=== PATIENT | male | born 1960 | race Caucasian/White ===

== ENCOUNTER 2017-05-14 08:48 | Outpatient (POV) | payer MEDICAID, SELFPAY | END 2017-05-14 10:00 | disposition home or self-care (01) | PROVIDERS: Visit Provider Podiatrist | DX: L84 Corns and callosities (principal); B35.1 Tinea unguium; E11.8 Type 2 diabetes mellitus with unspecified complications | CPT/HCPCS: 99212; G0127 ==

== ENCOUNTER 2017-05-21 13:48 | Observation (INO) | payer MEDICAID, SELFPAY | END 2017-05-22 09:45 | disposition home or self-care (01) | PROVIDERS: Admitting Provider Internal Medicine Adolescent Medicine; Emergency Provider Emergency Medicine; Family Provider Internal Medicine Adolescent Medicine; Visit Provider Internal Medicine Adolescent Medicine | DX: E86.0 Dehydration (principal); I10 Essential (primary) hypertension; I50.9 Heart failure, unspecified; Z95.810 Presence of automatic (implantable) cardiac defibrillator; Z95.5 Presence of coronary angioplasty implant and graft; I95.9 Hypotension, unspecified; E11.9 Type 2 diabetes mellitus without complications; I25.10 Atherosclerotic heart disease of native coronary artery without angina pectoris | CPT/HCPCS: 36415; 71010; 71250; 80048; 80053; 82550; 82553; 82962; 84484; 85025; 93005; 96365; 99285; G0378 ==

== ENCOUNTER 2017-05-25 11:12 | Outpatient (CLI) | payer MEDICAID, SELFPAY | END 2017-05-25 12:40 | disposition home or self-care (01) | PROVIDERS: Family Provider Internal Medicine Adolescent Medicine; Referring Provider Internal Medicine Adolescent Medicine; Visit Provider Internal Medicine Adolescent Medicine | DX: E86.0 Dehydration (principal) | CPT/HCPCS: 96365 ==

== ENCOUNTER → 2017-05-25 | Outpatient (CLI) | payer MEDICAID, SELFPAY | PROVIDERS: Visit Provider Internal Medicine Adolescent Medicine | DX: S37.009A Unspecified injury of unspecified kidney, initial encounter (principal) | CPT/HCPCS: 36415; 80048 ==

== ENCOUNTER 2017-06-02 16:15 | Observation (INO) | payer MEDICAID, SELFPAY ==
[2017-06-02 20:14] VITALS: BMI 40.0
[2017-06-03 06:36] VITALS: BP 108/65; PULSE 74; RESP 20; TEMP 36.5; O2SAT 99
--- NOTE | 2017-06-03 07:16 | HMH.PHAVTE ---
[facility] Pharmacy VTE Monitoring - Patient Demographics Admission date: 07/03/17 Report Date: 06/03/17 Time: 07:16 Allergies/Adverse Reactions: hydralazine Allergy (Severe, Verified 06/03/17 02:21) S-DIFF. BREATHING olmesartan Allergy (Severe, Verified 06/03/17 02:21) S-DIFF. BREATHING penicillin V Allergy (Unknown, Verified 06/03/17 02:21) Penicillins Allergy (Unknown, Verified 06/03/17 02:21) FAMILY HISTORY OF PCN ALLERGY Height: 1.75 m Weight: 102.767 kg - VTE Risk Labs: VTE Related Lab Results Hgb 14.2 g/dL (14.1-18.0) 06/02/17 13:10 Hct 42.8 % (42.0-52.0) 06/02/17 13:10 Plt Count 226 K/mm3 (142-424) 06/02/17 13:10 BUN 31 mg/dL (7-18) H 06/02/17 13:10 Creatinine 2.2 mg/dL (0.70-1.30) H 06/02/17 13:10 Estimated Creat Clear 64 ML/MIN (50-200) 06/02/17 13:10 Clinical Trial Participant: No - Prophylaxis VTE Prophylaxis Ordered?: Yes Types of VTE Prophylaxis: TEDS Knee High, Other Location of Applied Device: Not Applicable
--- NOTE | 2017-06-03 07:41 | PC.NURSE ---
NO COMPLAINTS STATED. INDEPENDENT WITH ADLS. VSS. WILL CONTINUE TO MONITOR.
[2017-06-03 08:10] LABS: Basophils # 0.1 K/mm3 (0-0.2); Basophils % 0.6 % (0.1-2.0); Eosinophils # 0.1 K/mm3 (0.0-0.4); Eosinophils % 1.2 % (0.1-12.0); Hematocrit 42.1 % (42.0-52.0); Lymphocytes # 1.7 K/mm3 (0.7-4.5); Lymphocytes % 20.9 K/mm3 (10-50); Mean Corpuscular HGB Conc 33.2 g/dL (31.8-35.4); Mean Corpuscular Hemoglobin 33.4 pg (27.0-31.2); Mean Corpuscular Volume 100.7 fl (80-94); Mean Platelet Volume 7.5 fl (7.4-10.4); Monocytes # 0.6 K/mm3 (0.1-1.0); Monocytes % 6.7 % (1.7-9.3); Neutrophils # 5.9 K/mm3 (1.8-7.8); Neutrophils % 70.6 % (37.0-80.0); Platelet Count 174 K/mm3 (142-424); Red Blood Count 4.18 M/mm3 (4.60-6.20); Red Cell Distribution Width 13.5 % (11.5-17.5); White Blood Count 8.4 K/mm3 (4.8-10.8)
[2017-06-03 08:28] LABS: Alanine Aminotransferase 48 U/L (12-78); Albumin Level 3.2 gm/dL (3.4-5.0); Alkaline Phosphatase 57 U/L (46-116); Anion Gap 12.3 mEq/L (5-15); Aspartate Amino Transferase 26 U/L (15-37); Bilirubin,Total 0.7 mg/dL (0.2-1.0); Blood Urea Nitrogen 25 mg/dL (7-18); Calcium 8.3 mg/dL (8.5-10.1); Carbon Dioxide 26 mmol/L (21.0-32.0); Chloride 105 mmol/L (98-107); Creatinine Clearance Estimated 78 mg/ml (0-300); Creatinine,Serum 1.49 mg/dL (0.70-1.30); Estimated Glomerular Filt Rate 48 ml/min (>60); GFR (African American) 58 ML/MIN (>60); Globulin 3.2 gm/dl (1.3-3.2); Glucose 86 mg/dL (74-106); Potassium 4.3 mmoL/L (3.5-5.1); Sodium 139 mmol/L (136-145); Total Protein,Serum 6.4 gm/dL (6.4-8.2)
[2017-06-03 08:53] VITALS: BP 85/43; PULSE 73; RESP 20; TEMP 36.7; O2SAT 96
--- NOTE | 2017-06-03 09:39 | HMH.DCSUM ---
General - General Admission date: 06/02/17 Discharge date: 06/03/17 HPI HPI: 57-year-old white male with history of congestive heart failure, ischemic cardiomyopathy and prerenal azotemia one month ago who was seen in my office last week with orthostatic hypotension, treated with IV fluids as an outpatient and adjusted medications including having his beta latrice and cutting his Lasix dose down to once a day. He's been compliant with these changes but over the past couple of days become increasingly weak and orthostatic. Came to the emergency department, found to have low blood pressure, creatinine elevated as noted and was admitted to hospital for IV fluids. Patient already feels better with 1 L of IV fluids but continues to feel somewhat weak and tired. Patient denies change in bowel or bladder habits otherwise, denies nausea or vomiting or other ill contacts or symptoms of acute illness. Objective Vital signs: Temp Pulse Resp BP Pulse Ox 98.0 F 73 20 85/43 96 06/03/17 08:53 06/03/17 08:53 06/03/17 08:53 06/03/17 08:53 06/03/17 08:53 Narrative: Other than patient's blood pressure, his exam was essentially unremarkable. He had minimal signs of dehydration with dry oropharynx. Lungs were clear, heart rate regular, abdomen soft and nontender, neurologic exam intact. Hospital Course Hospital Course: Patient was admitted overnight, gently hydrated. Blood pressure medications and diuretics were held. This morning the patient's creatinine had improved to 1.49, no more dizziness, and blood pressure was up in the low 90 range systolically. No changes on physical exam findings. Patient will be discharged home today. I have instructed him to hold his diuretics and his metformin, he will cut his carvedilol down to minimal dosages. I will see him in 2 days with labs at that point and consider instituting Entresto therapy. Results Labs on day of discharge: Labs from last 24 hours 06/03/17 06/03/17 06/02/17 06:29 06:29 19:59 WBC 8.4 RBC 4.18 L Hgb 14.0 L Hct 42.1 MCV 100.7 H MCH 33.4 H MCHC 33.2 RDW 13.5 Plt Count 174 MPV 7.5 Neut % (Auto) 70.6 Lymph % (Auto) 20.9 [place] % (Auto) 6.7 Eos % (Auto) 1.2 Baso % (Auto) 0.6 Neut # (Auto) 5.9 Lymph # (Auto) 1.7 [place] # (Auto) 0.6 Eos # (Auto) 0.1 Baso # (Auto) 0.1 Sodium 139 Potassium 4.3 Chloride 105 Carbon Dioxide 26 Anion Gap 12.3 BUN 25 H Creatinine 1.49 H Estimated Creat Clear 78 Estimated GFR 48 L Est GFR ( Amer) 58 L POC Glucose 122 H D Glucose 86 Calcium 8.3 L Total Bilirubin 0.7 AST 26 ALT 48 Alkaline Phosphatase 57 Total Protein 6.4 Albumin 3.2 L Globulin 3.2 Albumin/Globulin Ratio 1.0 L 06/02/17 16:51 WBC RBC Hgb Hct MCV MCH MCHC RDW Plt Count MPV Neut % (Auto) Lymph % (Auto) [place] % (Auto) Eos % (Auto) Baso % (Auto) Neut # (Auto) Lymph # (Auto) [place] # (Auto) Eos # (Auto) Baso # (Auto) Sodium Potassium Chloride Carbon Dioxide Anion Gap BUN Creatinine Estimated Creat Clear Estimated GFR Est GFR ( Amer) POC Glucose 92 Glucose Calcium Total Bilirubin AST ALT Alkaline Phosphatase Total Protein Albumin Globulin Albumin/Globulin Ratio DS: Diagnosis - Discharge Diagnosis (1) Orthostatic hypotension Status: Acute (2) Acute kidney injury Status: Acute (3) Ischemic cardiomyopathy Status: Acute (4) Diabetes mellitus type 2 in obese Status: Acute Meds Allergies Allergy/AdvReac Type Severity Reaction Status Date / Time hydralazine Allergy Severe S-DIFF. Verified 06/03/17 02:21 BREATHING olmesartan Allergy Severe S-DIFF. Verified 06/03/17 02:21 BREATHING penicillin V Allergy Unknown Verified 06/03/17 02:21 Penicillins Allergy Unknown FAMILY Verified 06/03/17 02:21
--- NOTE | 2017-06-03 09:43 | P.DS_ITS ---
General - General Admission date: 06/02/17 Discharge date: 06/03/17 HPI HPI: 57-year-old white male with history of congestive heart failure, ischemic cardiomyopathy and prerenal azotemia one month ago who was seen in my office last week with orthostatic hypotension, treated with IV fluids as an outpatient and adjusted medications including having his beta latrice and cutting his Lasix dose down to once a day. He's been compliant with these changes but over the past couple of days become increasingly weak and orthostatic. Came to the emergency department, found to have low blood pressure, creatinine elevated as noted and was admitted to hospital for IV fluids. Patient already feels better with 1 L of IV fluids but continues to feel somewhat weak and tired. Patient denies change in bowel or bladder habits otherwise, denies nausea or vomiting or other ill contacts or symptoms of acute illness. Objective Vital signs: Temp Pulse Resp BP Pulse Ox 98.0 F 73 20 85/43 96 06/03/17 08:53 06/03/17 08:53 06/03/17 08:53 06/03/17 08:53 06/03/17 08:53 Narrative: Other than patient's blood pressure, his exam was essentially unremarkable. He had minimal signs of dehydration with dry oropharynx. Lungs were clear, heart rate regular, abdomen soft and nontender, neurologic exam intact. Hospital Course Hospital Course: Patient was admitted overnight, gently hydrated. Blood pressure medications and diuretics were held. This morning the patient's creatinine had improved to 1.49, no more dizziness, and blood pressure was up in the low 90 range systolically. No changes on physical exam findings. Patient will be discharged home today. I have instructed him to hold his diuretics and his metformin, he will cut his carvedilol down to minimal dosages. I will see him in 2 days with labs at that point and consider instituting Entresto therapy. Results Labs on day of discharge: Labs from last 24 hours 06/03/17 06/03/17 06/02/17 06:29 06:29 19:59 WBC 8.4 RBC 4.18 L Hgb 14.0 L Hct 42.1 MCV 100.7 H MCH 33.4 H MCHC 33.2 RDW 13.5 Plt Count 174 MPV 7.5 Neut % (Auto) 70.6 Lymph % (Auto) 20.9 [place] % (Auto) 6.7 Eos % (Auto) 1.2 Baso % (Auto) 0.6 Neut # (Auto) 5.9 Lymph # (Auto) 1.7 [place] # (Auto) 0.6 Eos # (Auto) 0.1 Baso # (Auto) 0.1 Sodium 139 Potassium 4.3 Chloride 105 Carbon Dioxide 26 Anion Gap 12.3 BUN 25 H Creatinine 1.49 H Estimated Creat Clear 78 Estimated GFR 48 L Est GFR ( Amer) 58 L POC Glucose 122 H D Glucose 86 Calcium 8.3 L Total Bilirubin 0.7 AST 26 ALT 48 Alkaline Phosphatase 57 Total Protein 6.4 Albumin 3.2 L Globulin 3.2 Albumin/Globulin Ratio 1.0 L 06/02/17 16:51 WBC RBC Hgb Hct MCV MCH MCHC RDW Plt Count MPV Neut % (Auto) Lymph % (Auto) [place] % (Auto) Eos % (Auto) Baso % (Auto)
[2017-06-03 10:09] LABS: Anion Gap 11.4 mEq/L (5-15); Blood Urea Nitrogen 23 mg/dL (7-18); Carbon Dioxide 27 mmol/L (21.0-32.0); Chloride 105 mmol/L (98-107); Creatinine Clearance Estimated 81 mg/ml (0-300); Creatinine,Serum 1.43 mg/dL (0.70-1.30); Estimated Glomerular Filt Rate 51 ml/min (>60); GFR (African American) > 60 ML/MIN (>60); Potassium 4.4 mmoL/L (3.5-5.1); Sodium 139 mmol/L (136-145)
[2017-06-03 12:00] LABS: Glucose 131 mg/dL (74-106)
[2017-06-04 10:18] LABS: POC Glucose,Bedside 87 mg/dL
== END 2017-06-03 13:25 | disposition home or self-care (01) ==
PROVIDERS: Admitting Provider Internal Medicine Adolescent Medicine; Emergency Provider Emergency Medicine; Visit Provider Internal Medicine Adolescent Medicine
DX: N17.9 Acute kidney failure, unspecified (principal); I95.1 Orthostatic hypotension; I50.9 Heart failure, unspecified; R06.09 Other forms of dyspnea; Z95.0 Presence of cardiac pacemaker; E11.9 Type 2 diabetes mellitus without complications; I25.5 Ischemic cardiomyopathy
CPT/HCPCS: 36415; 71010; 80048; 80053; 82550; 82553; 82962; 83880; 84484; 85025; 93005; 93041; 96365; G0378

== ENCOUNTER → 2017-06-05 09:49 | Outpatient (CLI) | payer MEDICAID, SELFPAY ==
[2017-06-05 11:02] LABS: Anion Gap 10.5 mEq/L (5-15); Blood Urea Nitrogen 20 mg/dL (7-18); Carbon Dioxide 27 mmol/L (21.0-32.0); Chloride 103 mmol/L (98-107); Creatinine,Serum 1.33 mg/dL (0.70-1.30); Estimated Glomerular Filt Rate 55 ml/min (>60); GFR (African American) > 60 ML/MIN (>60); Glucose 140 mg/dL (74-106); Potassium 4.5 mmoL/L (3.5-5.1); Sodium 136 mmol/L (136-145)
== END ==
PROVIDERS: PCP Internal Medicine Adolescent Medicine; Visit Provider Internal Medicine Adolescent Medicine
DX: N17.9 Acute kidney failure, unspecified (principal)
CPT/HCPCS: 36415; 80048

== ENCOUNTER → 2017-06-19 13:05 | Outpatient (CLI) | payer MEDICAID, SELFPAY ==
[2017-06-19 13:53] LABS: Anion Gap 12.6 mEq/L (5-15); Blood Urea Nitrogen 19 mg/dL (7-18); Carbon Dioxide 26 mmol/L (21.0-32.0); Chloride 103 mmol/L (98-107); Creatinine,Serum 1.33 mg/dL (0.70-1.30); Estimated Glomerular Filt Rate 55 ml/min (>60); GFR (African American) 67 ML/MIN (>60); Glucose 120 mg/dL (74-106); Potassium 4.6 mmoL/L (3.5-5.1); Sodium 137 mmol/L (136-145)
== END ==
PROVIDERS: PCP Internal Medicine Adolescent Medicine; Visit Provider Internal Medicine Adolescent Medicine
DX: I10 Essential (primary) hypertension (principal)
CPT/HCPCS: 36415; 80048

== ENCOUNTER 2017-06-24 14:10 | Observation (INO) | payer MEDICAID, SELFPAY ==
[2017-06-24 14:27] VITALS: BMI 40.5
[2017-06-24 14:28] VITALS: BP 102/49; PULSE 77; RESP 20; TEMP 36.7; O2SAT 97
--- NOTE | 2017-06-24 14:29 | XR_ITS ---
XR chest 2V Ordering Physician: Umair Ma MD Patient Age: 57 years: Male HISTORY: ITS.REASON: dyspnea, chest pain TECHNIQUE: PA and lateral chest COMPARISON :June 02, 2017 portable chest. Also 05/21/2017 CXR. FINDINGS Today's PA and lateral chest demonstrates lungs to be well expanded and clear with nothing definitely acute. Pacemaker overlying left chest with atrial and ventricular leads intact. The heart is upper normal in size. Aorta mildly tortuous and ectatic. Overlying breast tissue most likely accentuates markings toward lung bases with no focal pneumonia evident IMPRESSION: Stable chest nothing definitely acute. Pacemaker. Heart upper normal in size with normal pulmonary vascularity.
--- NOTE | 2017-06-24 14:37 | CA_ITS ---
PROCEDURE: 2-D M-mode and color Doppler study INDICATIONS FOR THE TEST: Chest pain+ COPD Heart Murmur Tobacco Smoking Palpitations Fatigue Syncope Edema Hypertension+Diabetes Mellitus Rheumatic Fever SOB CORTEZ Obesity+Hyperlipidemia+ Family History HD Additional History CAD, stents, Pacemaker, hx of 40-45% EF 04/2017 PATIENT INFORMATION HEIGHT: 69 WEIGHT: 274 GENDER: Male B/P: 98/67 2-D/M-MODE INTERPRETATION: 2-D MEASUREMENTS OBSERVED VALUES IN CMS Right Ventricular Dimension (RVDd) 1.5 Interventricular Septum (Thickness)(IVsd) 0.9 Left Ventricular Internal Dimensions(LVIDd 5.4 Left Ventricular Posterior Wall (Thickness)(LVPWd) 0.9 Aortic Root 3.3 Aortic Cusp Separation 2.3 Left Atrial Dimensions (LAD) 4.2 2D 1. Left atrium is mildly enlarged, left ventricle is normal size, there is mild concentric left ventricular hypertrophy, visually estimated ejection fraction approximately 40%, there is marked hypokinesis involving mid to distal septum, anterior anteroapical and anterolateral wall. There is no left ventricular thrombus seen, Definity contrast was utilized to delineate endocardial surfaces. 2. The right atrium and right ventricle are relatively normal size and function, there is a pacemaker lead seen in the right atrium and right ventricle. 3. The aortic valve is minimally thickened and fibrosed. 4. The mitral and tricuspid valve leaflets are minimally thickened. 5. The pulmonic valve is poorly visualized. 6. No significant pericardial effusion noted. DOPPLER INTERROGATION: Doppler interrogation of the aortic, mitral and tricuspid valvular presence of mild mitral and tricuspid regurgitation, tricuspid and jet velocity is insufficient for calculation of the right ventricular systolic pressure, diastolic parameters are inconclusive. CONCLUSION: 1. Mildly enlarged left atrium, normal left ventricular size, mild concentric left ventricular hypertrophy, visually estimated ejection fraction of 40% with multiple segmental wall motion abnormality described above, Definity contrast or dissection delineate endocardial surfaces, there is no left ventricular thrombus seen. 2. Mild mitral and tricuspid regurgitation. 3. No significant pericardial effusion noted.
[2017-06-24 15:09] LABS: Anion Gap 11.5 mEq/L (5-15); Blood Urea Nitrogen 30 mg/dL (7-18); Carbon Dioxide 25 mmol/L (21.0-32.0); Chloride 104 mmol/L (98-107); Creatinine Clearance Estimated 80 mL/min (0-300); Creatinine,Serum 1.75 mg/dL (0.70-1.30); Estimated Glomerular Filt Rate 40 ml/min (>60); GFR (African American) 49 ML/MIN (>60); Glucose 134 mg/dL (74-106); Potassium 4.5 mmoL/L (3.5-5.1); Sodium 136 mmol/L (136-145)
--- NOTE | 2017-06-24 15:09 | PC.NURSE ---
RADIOLOGY NOW PRESENT AT THE BEDSIDE TO PERFORM AN ECHO FOR THE PATIENT PER ORDERS.
[2017-06-24 15:10] VITALS: RESP 18
[2017-06-24 15:12] LABS: Magnesium 1.9 mg/dL (1.4-2.2)
[2017-06-24 15:19] LABS: Troponin I < 0.02 ng/ml (0.00-0.06)
[2017-06-24 15:24] LABS: Thyroid Stimulating Hormone 0.86 uIU/ml (0.358-3.740)
[2017-06-24 16:00] VITALS: PULSE 80
[2017-06-24 16:31] VITALS: BP 118/59; PULSE 71; RESP 16; TEMP 36.8; O2SAT 95
[2017-06-24 16:45] LABS: POC Glucose,Bedside 126 mg/dL
--- NOTE | 2017-06-24 16:53 | PC.NURSE ---
EDGAR FROM RADIOLOGY HERE TO TAKE THE PATIENT DOWN FOR HIS CHEST XRAY AT THIS TIME.
[2017-06-24 16:58] LABS: Basophils # 0.1 K/mm3 (0-0.2); Basophils % 0.9 % (0.1-2.0); Eosinophils # 0.2 K/mm3 (0.0-0.4); Hemoglobin 12.7 g/dL (14.1-18.0); Lymphocytes # 1.3 K/mm3 (0.7-4.5); Lymphocytes % 18.3 K/mm3 (10-50); Mean Corpuscular HGB Conc 34.3 g/dL (31.8-35.4); Mean Corpuscular Hemoglobin 33.5 pg (27.0-31.2); Mean Corpuscular Volume 97.9 fl (80-94); Mean Platelet Volume 7.3 fl (7.4-10.4); Monocytes # 0.6 K/mm3 (0.1-1.0); Monocytes % 8.6 % (1.7-9.3); Neutrophils # 5.1 K/mm3 (1.8-7.8); Neutrophils % 70.3 % (37.0-80.0); Platelet Count 205 K/mm3 (142-424); Red Blood Count 3.78 M/mm3 (4.60-6.20); Red Cell Distribution Width 13.6 % (11.5-17.5); White Blood Count 7.2 K/mm3 (4.8-10.8)
--- NOTE | 2017-06-24 17:20 | PC.NURSE ---
PATIENT NOW BACK FROM HIS CHEST XRAY, HE TOLERATED PROCEDURE WELL.
--- NOTE | 2017-06-24 17:32 | PC.NURSE ---
Addendum entered by Coco Moore RN 06/24/17 18:49: CORRECTION: PATIENT HERE FOR ORHTOSTATIC HYPOTENSION AND CHEST PAIN. Original Note: PATIENT NEW ADMIT THIS AFTERNOON FOR ORTHOSTATIC HYPERTENSION AND CHEST PAIN. PATIENT HAD AN ECHO AND JUST GOT BACK FROM HIS CHEST XRAY AND TOLERATED THIS WELL. LABS SHOWS BUN AND CREAT ARE ELEVATED, TROPONIN WAS 0.02. PATIENT DENIES ANY ACUTE CHEST PAIN AT THIS TIME.PATIENT TOLERATING CARDIAC DIET WELL
--- NOTE | 2017-06-24 17:46 | HMH.HP ---
*Admission Date: 06/24/17 *Chief complaint: shortness of breath, syncope *History of present illness: 57 yr old male with h/o extensive heart and lung disease seen today in the office with c/o dyspnea and chest discomfort, present at rest but worse with exertion. He got up this morning and had a brief syncopal event while ambulating to the bathroom. Recovered quickly but still feels poorly. He was seen last week with similar complaints but not as severe - losartan was discontinued at that time. He was found to have some conversational dyspnea in the office and SBP in the 80's and was admitted for observation, labs and echo. [facility] History I have reviewed the patient's past medical history: Yes Medical History: Reports:: Atherosclerotic Heart Disease, Chronic Obstructive Pulmonary Disease (COPD), Coronary Artery Disease, Diabetes Mellitus Type 2, Hyperlipidemia, Hypertension, Internal Pacemaker Denies:: Cancer, Diabetes Mellitus Type 1, MRSA Other Surgeries: Yes: Pacemaker Amputation: No Fractures: No - *Social History Smoking Status: Former smoker #Yrs smoked (if former smoker): 30 Alcohol Intake: never Occupational Status: retired, disabled Housing: house Household Members: spouse - Psychiatric History Expresses thoughts of harming self/others: None Suicide Plan Description: No Plan *Family Hx:: Cancer Review of Systems - Review of Systems Review of systems:: pertinent systems reviewed and negative unless documented below - Constitutional Reports fatigue, Reports lack of energy, Reports weakness - ENT Reports dizziness - *Cardiovascular Reports chest pain at rest, Reports chest pain with activity, Reports shortness of breath, Denies leg swelling - *Respiratory Reports cough, Reports shortness of breath - *Gastrointestinal Denies abdominal pain - *Genitourinary Denies difficulty urinating - *Neurologic Reports fainting, Denies abnormal walking, Denies seizure-like activity Meds Home Medications Medication Instructions Recorded Confirmed Type Atorvastatin Calcium [Atorvastatin 80 mg PO HS 06/03/17 06/24/17 History 80mg Tab] Carvedilol [Carvedilol 25mg Tab] 25 mg PO BID 06/03/17 06/24/17 History Clopidogrel Bisulfate [Plavix 75mg 75 mg PO DAILY 06/03/17 06/24/17 History Tab] Nitroglycerin 0.4 mg PO Q5MINP PRN 06/03/17 06/24/17 History Ranolazine [Ranexa] 1,000 mg PO BID 06/03/17 06/24/17 History Tamsulosin HCl [Flomax 0.4mg 0.4 mg PO DAILY 06/03/17 06/24/17 History capsule] Vortioxetine Hydrobromide 20 mg PO DAILY 06/03/17 06/24/17 History [Trintellix] Aspirin [Adult Low Dose Aspirin EC] 81 mg PO DAILY 06/24/17 06/24/17 History Isosorbide Mononitrate [Isosorbide 120 mg PO DAILY 06/24/17 06/24/17 History Mononitrate ER] Losartan Potassium 50 mg PO DAILY 06/24/17 06/24/17 History Sacubitril/Valsartan [Entresto 24 1 each PO BID 06/24/17 06/24/17 History mg-26 mg Tablet] Spironolactone [Spironolactone 50 mg PO BID 06/24/17 06/24/17 History 50mg Tab] Suvorexant [Belsomra] 20 mg PO DAILY 06/24/17 06/24/17 History Allergies Allergy/AdvReac Type Severity Reaction Status Date / Time hydralazine Allergy Severe S-DIFF. Verified 06/03/17 02:21 BREATHING olmesartan Allergy Severe S-DIFF. Verified 06/03/17 02:21 BREATHING penicillin V Allergy Unknown Verified 06/03/17 02:21 Penicillins Allergy Unknown FAMILY Verified 06/03/17 02:21 HISTORY OF PCN ALLERGY Exam Vital signs and Labs for Last 24 Hours: Temp Pulse Resp BP Pulse Ox 98.3 F 71 16 118/59 95 06/24/17 16:31 06/24/17 16:31 06/24/17 16:31 06/24/17 16:31 06/24/17 16:31 Laboratory Results - last 24 hr 06/24/17 14:53: B-Natriuretic Peptide 45 06/24/17 14:53: TSH 0.86 06/24/17 14:53: WBC 7.2, RBC 3.78 L, Hgb 12.7 L, Hct 37.0 L, MCV 97.9 H, MCH 33.5 H, MCHC 34.3, RDW 13.6, Plt Count 205, MPV 7.3 L, Neut % (Auto) 70.3, Lymph % (Auto) 18.3, [place] % (Auto) 8.6, Eos % (Auto) 2.0, Baso %
--- NOTE | 2017-06-24 17:49 | P.HP_ITS ---
*Admission Date: 06/24/17 *Chief complaint: shortness of breath, syncope *History of present illness: 57 yr old male with h/o extensive heart and lung disease seen today in the office with c/o dyspnea and chest discomfort, present at rest but worse with exertion. He got up this morning and had a brief syncopal event while ambulating to the bathroom. Recovered quickly but still feels poorly. He was seen last week with similar complaints but not as severe - losartan was discontinued at that time. He was found to have some conversational dyspnea in the office and SBP in the 80's and was admitted for observation, labs and echo. [facility] History I have reviewed the patient's past medical history: Yes Medical History: Reports:: Atherosclerotic Heart Disease, Chronic Obstructive Pulmonary Disease (COPD), Coronary Artery Disease, Diabetes Mellitus Type 2, Hyperlipidemia, Hypertension, Internal Pacemaker Denies:: Cancer, Diabetes Mellitus Type 1, MRSA Other Surgeries: Yes: Pacemaker Amputation: No Fractures: No - *Social History Smoking Status: Former smoker #Yrs smoked (if former smoker): 30 Alcohol Intake: never Occupational Status: retired, disabled Housing: house Household Members: spouse - Psychiatric History Expresses thoughts of harming self/others: None Suicide Plan Description: No Plan *Family Hx:: Cancer Review of Systems - Review of Systems Review of systems:: pertinent systems reviewed and negative unless documented below - Constitutional Reports fatigue, Reports lack of energy, Reports weakness - ENT Reports dizziness - *Cardiovascular Reports chest pain at rest, Reports chest pain with activity, Reports shortness of breath, Denies leg swelling - *Respiratory Reports cough, Reports shortness of breath - *Gastrointestinal Denies abdominal pain - *Genitourinary Denies difficulty urinating - *Neurologic Reports fainting, Denies abnormal walking, Denies seizure-like activity Meds Home Medications Medication Instructions Recorded Confirmed Type Atorvastatin Calcium [Atorvastatin 80 mg PO HS 06/03/17 06/24/17 History 80mg Tab] Carvedilol [Carvedilol 25mg Tab] 25 mg PO BID 06/03/17 06/24/17 History Clopidogrel Bisulfate [Plavix 75mg 75 mg PO DAILY 06/03/17 06/24/17 History Tab] Nitroglycerin 0.4 mg PO Q5MINP PRN 06/03/17 06/24/17 History Ranolazine [Ranexa] 1,000 mg PO BID 06/03/17 06/24/17 History Tamsulosin HCl [Flomax 0.4mg 0.4 mg PO DAILY 06/03/17 06/24/17 History capsule] Vortioxetine Hydrobromide 20 mg PO DAILY 06/03/17 06/24/17 History [Trintellix] Aspirin [Adult Low Dose Aspirin EC] 81 mg PO DAILY 06/24/17 06/24/17 History Isosorbide Mononitrate [Isosorbide 120 mg PO DAILY 06/24/17 06/24/17 History Mononitrate ER] Losartan Potassium 50 mg PO DAILY 06/24/17 06/24/17 History Sacubitril/Valsartan [Entresto 24 1 each PO BID 06/24/17 06/24/17 History mg-26 mg Tablet] Spironolactone [Spironolactone 50 mg PO BID 06/24/17 06/24/17 History 50mg Tab] Suvorexant [Belsomra] 20 mg PO DAILY 06/24/17 06/24/17 History Allergies Allergy/AdvReac Type Severity Reaction Status Date / Time hydralazine Allergy Severe S-DIFF. Verified 06/03/17 02:21 BREATHING olmesartan Allergy Severe S-DIFF. Verified 06/03/17 02:21 BREATHING penicillin V Allergy Unknown Verified 06/03/17 02:21 Penicillins Allergy Unknown
--- NOTE | 2017-06-24 18:42 | PC.NURSE ---
DR. ALVARADO IN TO SEE PATIENT ON HIS EVENING ROUNDS.
[2017-06-24 20:00] VITALS: BP 119/65; PULSE 70; PULSE 71; RESP 18; TEMP 36.5; O2SAT 95
[2017-06-24 20:25] LABS: Troponin I < 0.02 ng/ml (0.00-0.06)
--- NOTE | 2017-06-24 20:41 | PC.NURSE ---
rn given a copy of all vital signs
[2017-06-25] VITALS: BP 120/65; PULSE 60; PULSE 71; RESP 18; TEMP 36.7; O2SAT 96
[2017-06-25 04:00] VITALS: BP 120/64; PULSE 70; PULSE 75; RESP 18; TEMP 36.6; O2SAT 97
--- NOTE | 2017-06-25 05:10 | PC.NURSE ---
Laying in bed resting at this time. Has rest most of night. Denied chest pain or soa. Has been nsr on tele. Lungs are clear, resp even and nonlabored. Has been npo since midnight due to [facility] consult. Iv is patent. Has no needs at this time. Bed locked in low position, side rales up x 2. call light within reach. Will continue to monitor.
--- NOTE | 2017-06-25 07:01 | CI_ITS ---
Cerebrovascular Exam Indications: 780.2 Syncope and collapse. IMPRESSIONS 1. The bilateral vertebral arteries are patent with normal antegrade flow. 2. Study suggests less than 20% stenosis involving the right internal carotid artery and the left internal carotid artery. No change from the study of 14-Mar-2017. Carotid duplex study. Complete study and Doppler flow study including spectral analysis, color and brar scale imaging. Height: Height: 175.3cm. Height: 69in. Weight: Weight: 123.8kg. Weight: 272.4lb. Body mass index: BMI: 40.3kg/m^2. Body surface area: BSA: 2.51m^2. Location: Bedside. Patient status: Inpatient. Tables: Arterial flow: + +--------+--------+ Location V sys V ed + +--------+--------+ Right CCA - proximal 118cm/s 33cm/s + +--------+--------+ Right CCA - distal 80.9cm/s 24.4cm/s + +--------+--------+ Right ECA 134cm/s -------- + +--------+--------+ Right ICA - proximal 134cm/s 29.9cm/s + +--------+--------+ Right ICA - mid 84.9cm/s 30.6cm/s + +--------+--------+ Right ICA - distal 74.6cm/s 35.4cm/s + +--------+--------+ Right vertebral 39.3cm/s -------- + +--------+--------+ Left CCA - proximal 84.1cm/s 19.6cm/s + +--------+--------+ Left CCA - distal 73.1cm/s 27.5cm/s + +--------+--------+ Left ECA 109cm/s -------- + +--------+--------+ Left ICA - proximal 85.6cm/s 24.4cm/s + +--------+--------+ Left ICA - mid 88cm/s 32.2cm/s + +--------+--------+ Left ICA - distal 124cm/s 53.4cm/s + +--------+--------+ Left vertebral 65.2cm/s -------- + +--------+--------+ Velocity ratios: + + + + + + Right, V sys Right, V ed Left, V sys Left, V ed + + + + + + Max ICA/dist CCA 1.66 1.45 1.7 1.94 + + + + + + (Report amended ) Electronically signed by: Ang Bhatia [id number]
[2017-06-25 07:14] LABS: CKMB Relative Index 0.8 U/L (0-4.0); Creatine Kinase 86 U/L (39-308); Creatine Kinase MB 0.7 mg/ml (0.0-3.6); Troponin I < 0.02 ng/ml (0.00-0.06)
[2017-06-25 07:27] VITALS: BP 103/60; PULSE 73; RESP 20; TEMP 36.6; O2SAT 97
[2017-06-25 08:00] VITALS: PULSE 70
--- NOTE | 2017-06-25 08:53 | HMH.PHAVTE ---
[facility] Pharmacy VTE Monitoring - Patient Demographics Admission date: 06/24/17 Report Date: 06/25/17 Time: 08:53 Allergies/Adverse Reactions: Patient Allergies hydralazine Allergy (Severe, Verified 06/03/17 02:21) S-DIFF. BREATHING olmesartan Allergy (Severe, Verified 06/03/17 02:21) S-DIFF. BREATHING penicillin V Allergy (Unknown, Verified 06/03/17 02:21) Penicillins Allergy (Unknown, Verified 06/03/17 02:21) FAMILY HISTORY OF PCN ALLERGY Height: 1.75 m Weight: 123.944 kg Patient Problems: Current Active Problems Orthostatic hypotension (Acute) Acute kidney injury (Acute) Ischemic cardiomyopathy (Chronic) Diabetes mellitus type 2 in obese (Chronic) - VTE Risk Labs: VTE Related Lab Results Hgb 12.7 g/dL (14.1-18.0) L 06/24/17 14:53 Hct 37.0 % (42.0-52.0) L 06/24/17 14:53 Plt Count 205 K/mm3 (142-424) 06/24/17 14:53 BUN 30 mg/dL (7-18) H 06/24/17 14:53 Creatinine 1.75 mg/dL (0.70-1.30) H 06/24/17 14:53 Estimated Creat Clear 80 mL/min (0-300) 06/24/17 14:53 Was VTE Risk Assessment Performed: Yes VTE Score: 3 VTE Risk Level: Low Risk Clinical Trial Participant: No - Prophylaxis VTE Prophylaxis Ordered?: Yes Types of VTE Prophylaxis: TEDS Knee High Location of Applied Device: Refused
--- NOTE | 2017-06-25 09:04 | P.PN_ITS ---
Internal Medicine - PN: Subj *Date: 06/25/17 *Time: 09:01 Interval history: Patient states he feels much better this morning. He has been out of bed with no further dizziness. Blood pressure has improved. Exam Vital signs and Labs for Last 24 Hours: Temp Pulse Resp BP Pulse Ox 97.8 F 73 20 103/60 97 06/25/17 07:27 06/25/17 07:27 06/25/17 07:27 06/25/17 07:27 06/25/17 07:27 Laboratory Results - last 24 hr 06/24/17 14:53: B-Natriuretic Peptide 45 06/24/17 14:53: TSH 0.86 06/24/17 14:53: WBC 7.2, RBC 3.78 L, Hgb 12.7 L, Hct 37.0 L, MCV 97.9 H, MCH 33.5 H, MCHC 34.3, RDW 13.6, Plt Count 205, MPV 7.3 L, Neut % (Auto) 70.3, Lymph % (Auto) 18.3, [place] % (Auto) 8.6, Eos % (Auto) 2.0, Baso % (Auto) 0.9, Neut # (Auto) 5.1, Lymph # (Auto) 1.3, [place] # (Auto) 0.6, Eos # (Auto) 0.2, Baso # (Auto) 0.1 06/24/17 14:53: Sodium 136, Potassium 4.5, Chloride 104, Carbon Dioxide 25, Anion Gap 11.5, BUN 30 H, Creatinine 1.75 H, Estimated Creat Clear 80, Estimated GFR 40 L, Est GFR ( Amer) 49 L, Glucose 134 H 06/24/17 14:53: Magnesium 1.9, Troponin I < 0.02 06/24/17 16:37: POC Glucose 126 06/24/17 20:04: Troponin I < 0.02 06/25/17 06:27: Magnesium 2.0, Total Creatine Kinase 86, CK-MB (CK-2) 0.7, CK- MB (CK-2) Rel Index 0.8, Troponin I < 0.02 I & O for Last 24 hours: Intake & Output 01/20/18 01/21/18 01/22/18 01/23/18 11:59 11:59 11:59 11:59 Intake Total 1350 / 1350 Balance 1350 / 1350 Weight 273 lb 4 oz Narrative: Alert and oriented x3. Rate and rhythm regular. No LE edema. Lung sounds clear and equal. Abdomen soft and nontender. Normoactive bowel sounds. Assessment and Plan (1) Orthostatic hypotension Current visit: Yes Status: Acute Category: Medical Code(s): I95.1 - Orthostatic hypotension (2) Acute kidney injury Current visit: Yes Status: Acute Category: Medical Code(s): N17.9 - Acute kidney failure, unspecified (3) Diabetes mellitus type 2 in obese Current visit: Yes Status: Chronic Category: Medical Code(s): E11.69 - Type 2 diabetes mellitus with other specified complication; E66.9 - Obesity, unspecified (4) Ischemic cardiomyopathy Current visit: Yes Status: Chronic Category: Medical Code(s): I25.5 - Ischemic cardiomyopathy - Assessment and plan all Dx Assessment and Plan for all problems:: Blood pressure and symptoms are improved. Echo showed multiple segmental wall motion abnormalities with EF 40%. Cardiology consult today. Carotid dopplers today.
--- NOTE | 2017-06-25 09:32 | HMH.CARDCON2 ---
History of Present Illness Consult date: 06/25/17 Requesting physician: Umair Ma Consult reason: hypotension Chief complaint: Passed out, Weakness History of present illness: 57-year-old white male with known ischemic cardiomyopathy (although recent cardiac catheterization revealed no clinically significant coronary disease), AICD and recurrent episodes of hypotension and was admitted yesterday due to episode of syncope. Patient relates getting up off of couch and while walking down the robb began to feel lightheaded after which he woke up on the floor. He was seen in Dr. Ma's office with blood pressure noted to be significantly low and patient was admitted for IV fluids and further evaluation. Patient states he is feeling a little bit better today but continues to feel severely fatigued which has been a recurrent problem over the last 3 months. Previous cardiac catheterization in March of last year shows ischemic cardiomyopathy with an EF of about 15%. With medical therapy patient's ejection fraction has improved to the 40-45% range by echo in April and again this admission. Patient recently has been started on Entresto without significant improvement. Cardiology consulted for evaluation and recommendations. Review of Systems - Constitutional Reports weakness - *Cardiovascular Reports shortness of breath with activity - *Respiratory Reports shortness of breath with activity - *Neurologic Reports fainting, Reports dizziness, Reports weakness, Denies abnormal walking, Denies seizure-like activity [facility] History Medical History: Reports:: Atherosclerotic Heart Disease, Chronic Obstructive Pulmonary Disease (COPD), Coronary Artery Disease, Diabetes Mellitus Type 2, Hyperlipidemia, Hypertension, Internal Pacemaker Denies:: Cancer, Diabetes Mellitus Type 1, MRSA Other Surgeries: Yes: Pacemaker Amputation: No Fractures: No - *Social History Smoking Status: Former smoker #Yrs smoked (if former smoker): 30 Alcohol Intake: never Occupational Status: retired, disabled Housing: house Household Members: spouse - Psychiatric History Expresses thoughts of harming self/others: None Suicide Plan Description: No Plan *Family Hx:: Cancer Meds Home Medications Medication Instructions Recorded Confirmed Type Atorvastatin Calcium [Atorvastatin 80 mg PO HS 06/03/17 06/24/17 History 80mg Tab] Carvedilol [Carvedilol 25mg Tab] 25 mg PO BID 06/03/17 06/24/17 History Clopidogrel Bisulfate [Plavix 75mg 75 mg PO DAILY 06/03/17 06/24/17 History Tab] Nitroglycerin 0.4 mg PO Q5MINP PRN 06/03/17 06/24/17 History Ranolazine [Ranexa] 1,000 mg PO BID 06/03/17 06/24/17 History Tamsulosin HCl [Flomax 0.4mg 0.4 mg PO DAILY 06/03/17 06/24/17 History capsule] Vortioxetine Hydrobromide 20 mg PO DAILY 06/03/17 06/24/17 History [Trintellix] Aspirin [Adult Low Dose Aspirin EC] 81 mg PO DAILY 06/24/17 06/24/17 History Isosorbide Mononitrate [Isosorbide 120 mg PO DAILY 06/24/17 06/24/17 History Mononitrate ER] Losartan Potassium 50 mg PO DAILY 06/24/17 06/24/17 History Sacubitril/Valsartan [Entresto 24 1 each PO BID 06/24/17 06/24/17 History mg-26 mg Tablet] Spironolactone [Spironolactone 50 mg PO BID 06/24/17 06/24/17 History 50mg Tab] Suvorexant [Belsomra] 20 mg PO DAILY 06/24/17 06/24/17 History Allergies Allergy/AdvReac Type Severity Reaction Status Date / Time hydralazine Allergy Severe S-DIFF. Verified 06/03/17 02:21 BREATHING olmesartan Allergy Severe S-DIFF. Verified 06/03/17 02:21 BREATHING penicillin V Allergy Unknown Verified 06/03/17 02:21 Penicillins Allergy Unknown FAMILY Verified 06/03/17 02:21 HISTORY OF PCN ALLERGY Exam Vital signs and Labs for Last 24 Hours: Temp Pulse Resp BP Pulse Ox 97.8 F 73 20 103/60 97 06/25/17 07:27 06/25/17 07:27 06/25/17 07:27 06/25/17 07:27 06/25/17 07:27 Laboratory Results - last 24 hr 06/24/17 14:53:
--- NOTE | 2017-06-25 09:35 | P.CONS_ITS ---
History of Present Illness Consult date: 06/25/17 Requesting physician: Umair Ma Consult reason: hypotension Chief complaint: Passed out, Weakness History of present illness: 57-year-old white male with known ischemic cardiomyopathy (although recent cardiac catheterization revealed no clinically significant coronary disease), AICD and recurrent episodes of hypotension and was admitted yesterday due to episode of syncope. Patient relates getting up off of couch and while walking down the robb began to feel lightheaded after which he woke up on the floor. He was seen in Dr. Ma's office with blood pressure noted to be significantly low and patient was admitted for IV fluids and further evaluation. Patient states he is feeling a little bit better today but continues to feel severely fatigued which has been a recurrent problem over the last 3 months. Previous cardiac catheterization in March of last year shows ischemic cardiomyopathy with an EF of about 15%. With medical therapy patient' s ejection fraction has improved to the 40-45% range by echo in April and again this admission. Patient recently has been started on Entresto without significant improvement. Cardiology consulted for evaluation and recommendations. Review of Systems - Constitutional Reports weakness - *Cardiovascular Reports shortness of breath with activity - *Respiratory Reports shortness of breath with activity - *Neurologic Reports fainting, Reports dizziness, Reports weakness, Denies abnormal walking, Denies seizure-like activity [facility] History Medical History: Reports:: Atherosclerotic Heart Disease, Chronic Obstructive Pulmonary Disease (COPD), Coronary Artery Disease, Diabetes Mellitus Type 2, Hyperlipidemia, Hypertension, Internal Pacemaker Denies:: Cancer, Diabetes Mellitus Type 1, MRSA Other Surgeries: Yes: Pacemaker Amputation: No Fractures: No - *Social History Smoking Status: Former smoker #Yrs smoked (if former smoker): 30 Alcohol Intake: never Occupational Status: retired, disabled Housing: house Household Members: spouse - Psychiatric History Expresses thoughts of harming self/others: None Suicide Plan Description: No Plan *Family Hx:: Cancer Meds Home Medications Medication Instructions Recorded Confirmed Type Atorvastatin Calcium [Atorvastatin 80 mg PO HS 06/03/17 06/24/17 History 80mg Tab] Carvedilol [Carvedilol 25mg Tab] 25 mg PO BID 06/03/17 06/24/17 History Clopidogrel Bisulfate [Plavix 75mg 75 mg PO DAILY 06/03/17 06/24/17 History Tab] Nitroglycerin 0.4 mg PO Q5MINP PRN 06/03/17 06/24/17 History Ranolazine [Ranexa] 1,000 mg PO BID 06/03/17 06/24/17 History Tamsulosin HCl [Flomax 0.4mg 0.4 mg PO DAILY 06/03/17 06/24/17 History capsule] Vortioxetine Hydrobromide 20 mg PO DAILY 06/03/17 06/24/17 History [Trintellix] Aspirin [Adult Low Dose Aspirin EC] 81 mg PO DAILY 06/24/17 06/24/17 History Isosorbide Mononitrate [Isosorbide 120 mg PO DAILY 06/24/17 06/24/17 History Mononitrate ER] Losartan Potassium 50 mg PO DAILY 06/24/17 06/24/17 History Sacubitril/Valsartan [Entresto 24 1 each PO BID 06/24/17 06/24/17 History mg-26 mg Tablet] Spironolactone [Spironolactone 50 mg PO BID 06/24/17 06/24/17 History 50mg Tab] Suvorexant [Belsomra] 20 mg PO DAILY 06/24/17 06/24/17 History Allergies Allergy/AdvReac Type Severity Reaction Status Date / Time hydralazine Allergy Severe S-DIF
[2017-06-25 09:47] VITALS: RESP 18
[2017-06-25 11:26] VITALS: BP 114/67; PULSE 78; RESP 20; TEMP 36.9; O2SAT 95
--- NOTE | 2017-06-25 14:59 | HMH.DCSUM ---
General - General Admission date: 06/24/17 Discharge date: 06/25/17 HPI HPI: 57 yr old male with h/o extensive heart and lung disease seen today in the office with c/o dyspnea and chest discomfort, present at rest but worse with exertion. He got up this morning and had a brief syncopal event while ambulating to the bathroom. Recovered quickly but still feels poorly. He was seen last week with similar complaints but not as severe - losartan was discontinued at that time. He was found to have some conversational dyspnea in the office and SBP in the 80's and was admitted for observation, labs and echo. Objective Vital signs: Temp Pulse Resp BP Pulse Ox 98.4 F 78 20 114/67 95 06/25/17 11:26 06/25/17 11:26 06/25/17 11:26 06/25/17 11:26 06/25/17 11:26 Hospital Course Hospital Course: Patient was admitted to observation. He was given normal saline infusions with resolution of orthostasis. Echo was obtained which showed multiple segmental wall motion abnormalities and EF 40%. Cardiology was consulted who recommended holding diuretics and decreasing isosorbide. Carotid dopplers were obtained and found to be unremarkable. Patient is feeling well and able to ambulate without dizziness. Discharge home with medication changes as noted below. FU with Dr. Ma at next scheduled appointment. BMP prior to appointment. Results Labs on day of discharge: Labs from last 24 hours 06/25/17 06/24/17 06/24/17 06:27 20:04 16:37 WBC RBC Hgb Hct MCV MCH MCHC RDW Plt Count MPV Neut % (Auto) Lymph % (Auto) [place] % (Auto) Eos % (Auto) Baso % (Auto) Neut # (Auto) Lymph # (Auto) [place] # (Auto) Eos # (Auto) Baso # (Auto) Sodium Potassium Chloride Carbon Dioxide Anion Gap BUN Creatinine Estimated Creat Clear Estimated GFR Est GFR ( Amer) Glucose POC Glucose 126 Magnesium 2.0 Total Creatine Kinase 86 CK-MB (CK-2) 0.7 CK-MB (CK-2) Rel Index 0.8 Troponin I < 0.02 < 0.02 B-Natriuretic Peptide TSH 06/24/17 06/24/17 06/24/17 14:53 14:53 14:53 WBC 7.2 RBC 3.78 L Hgb 12.7 L Hct 37.0 L MCV 97.9 H MCH 33.5 H MCHC 34.3 RDW 13.6 Plt Count 205 MPV 7.3 L Neut % (Auto) 70.3 Lymph % (Auto) 18.3 [place] % (Auto) 8.6 Eos % (Auto) 2.0 Baso % (Auto) 0.9 Neut # (Auto) 5.1 Lymph # (Auto) 1.3 [place] # (Auto) 0.6 Eos # (Auto) 0.2 Baso # (Auto) 0.1 Sodium 136 Potassium 4.5 Chloride 104 Carbon Dioxide 25 Anion Gap 11.5 BUN 30 H Creatinine 1.75 H Estimated Creat Clear 80 Estimated GFR 40 L Est GFR ( Amer) 49 L Glucose 134 H POC Glucose Magnesium 1.9 Total Creatine Kinase CK-MB (CK-2) CK-MB (CK-2) Rel Index Troponin I < 0.02 B-Natriuretic Peptide TSH 06/24/17 06/24/17 14:53 14:53 WBC RBC Hgb Hct MCV MCH MCHC RDW Plt Count MPV Neut % (Auto) Lymph % (Auto) [place] % (Auto) Eos % (Auto) Baso % (Auto) Neut # (Auto) Lymph # (Auto) [place] # (Auto) Eos # (Auto) Baso # (Auto) Sodium Potassium Chloride Carbon Dioxide Anion Gap BUN Creatinine Estimated Creat Clear Estimated GFR Est GFR ( Amer) Glucose POC Glucose Magnesium Total Creatine Kinase CK-MB (CK-2) CK-MB (CK-2) Rel Index Troponin I B-Natriuretic Peptide 45 TSH 0.86 DS: Diagnosis - Discharge Diagnosis (1) Orthostatic hypotension Status: Resolved (2) Acute kidney injury Status: Resolved (3) Diabetes mellitus type 2 in obese Status: Chronic (4) Ischemic cardiomyopathy Status: Chronic Meds Home Medications Medication Instructions Recorded Confirmed Type Atorvastatin Calcium [Atorvastatin 80 mg PO HS 06/03/17 06/24/17 History 80mg Tab] Carvedilol [Car
--- NOTE | 2017-06-25 15:06 | P.DS_ITS ---
General - General Admission date: 06/24/17 Discharge date: 06/25/17 HPI HPI: 57 yr old male with h/o extensive heart and lung disease seen today in the office with c/o dyspnea and chest discomfort, present at rest but worse with exertion. He got up this morning and had a brief syncopal event while ambulating to the bathroom. Recovered quickly but still feels poorly. He was seen last week with similar complaints but not as severe - losartan was discontinued at that time. He was found to have some conversational dyspnea in the office and SBP in the 80's and was admitted for observation, labs and echo. Objective Vital signs: Temp Pulse Resp BP Pulse Ox 98.4 F 78 20 114/67 95 06/25/17 11:26 06/25/17 11:26 06/25/17 11:26 06/25/17 11:26 06/25/17 11:26 Hospital Course Hospital Course: Patient was admitted to observation. He was given normal saline infusions with resolution of orthostasis. Echo was obtained which showed multiple segmental wall motion abnormalities and EF 40%. Cardiology was consulted who recommended holding diuretics and decreasing isosorbide. Carotid dopplers were obtained and found to be unremarkable. Patient is feeling well and able to ambulate without dizziness. Discharge home with medication changes as noted below. FU with Dr. Ma at next scheduled appointment. BMP prior to appointment. Results Labs on day of discharge: Labs from last 24 hours 06/25/17 06/24/17 06/24/17 06:27 20:04 16:37 WBC RBC Hgb Hct MCV MCH MCHC RDW Plt Count MPV Neut % (Auto) Lymph % (Auto) [place] % (Auto) Eos % (Auto) Baso % (Auto) Neut # (Auto) Lymph # (Auto) [place] # (Auto) Eos # (Auto) Baso # (Auto) Sodium Potassium Chloride Carbon Dioxide Anion Gap BUN Creatinine Estimated Creat Clear Estimated GFR Est GFR ( Amer) Glucose POC Glucose 126 Magnesium 2.0 Total Creatine Kinase 86 CK-MB (CK-2) 0.7 CK-MB (CK-2) Rel Index 0.8 Troponin I < 0.02 < 0.02 B-Natriuretic Peptide TSH 06/24/17 06/24/17 06/24/17 14:53 14:53 14:53 WBC 7.2 RBC 3.78 L Hgb 12.7 L Hct 37.0 L MCV 97.9 H MCH 33.5 H MCHC 34.3 RDW 13.6 Plt Count 205 MPV 7.3 L Neut % (Auto) 70.3 Lymph % (Auto) 18.3 [place] % (Auto) 8.6 Eos % (Auto) 2.0 Baso % (Auto) 0.9 Neut # (Auto) 5.1 Lymph # (Auto) 1.3 [place] # (Auto) 0.6 Eos # (Auto) 0.2 Baso # (Auto) 0.1 Sodium 136 Potassium 4.5 Chloride 104 Carbon Dioxide 25 Anion Gap 11.5 BUN 30 H Creatinine 1.75 H Estimated Creat Clear 80 Estimated GFR 40 L Est GFR ( Amer) 49 L Glucose 134 H POC Glucose Magnesium 1.9 Total Creatine Kinase CK-MB (CK-2) CK-MB (CK-2) Rel Index
== END 2017-06-25 16:30 | disposition home or self-care (01) ==
PROVIDERS: Nurse Practitioner Family; Admitting Provider Internal Medicine Adolescent Medicine; Family Provider Internal Medicine Adolescent Medicine; PCP Internal Medicine Adolescent Medicine; Visit Provider Internal Medicine Adolescent Medicine
DX: I95.1 Orthostatic hypotension (principal); Z95.0 Presence of cardiac pacemaker; I25.5 Ischemic cardiomyopathy; E66.9 Obesity, unspecified; E11.69 Type 2 diabetes mellitus with other specified complication; E78.5 Hyperlipidemia, unspecified; Z86.79 Personal history of other diseases of the circulatory system; Z87.09 Personal history of other diseases of the respiratory system; Z79.899 Other long term (current) drug therapy
CPT/HCPCS: 71046; 80048; 82550; 82553; 82962; 83735; 83880; 84443; 84484; 85025; 93005; 93306; 93880; 94760; G0378

== ENCOUNTER 2017-06-28 14:02 | Outpatient (RCR) | payer MEDICAID, SELFPAY | END 2017-06-28 14:05 | disposition home or self-care (01) | LOC: PT 14:02 | PROVIDERS: Family Provider Internal Medicine Adolescent Medicine; PCP Internal Medicine Adolescent Medicine; Visit Provider Internal Medicine | DX: I25.10 Atherosclerotic heart disease of native coronary artery without angina pectoris (principal); R07.9 Chest pain, unspecified; R53.83 Other fatigue | CPT/HCPCS: 93798 ==

== ENCOUNTER → 2017-07-03 15:12 | Outpatient (CLI) | payer MEDICAID, SELFPAY ==
[2017-07-03 17:48] LABS: Anion Gap 15.6 mEq/L (5-15); Blood Urea Nitrogen 17 mg/dL (7-18); Carbon Dioxide 25 mmol/L (21.0-32.0); Chloride 106 mmol/L (98-107); Creatinine,Serum 1.34 mg/dL (0.70-1.30); Estimated Glomerular Filt Rate 55 ml/min (>60); GFR (African American) 66 ML/MIN (>60); Glucose 85 mg/dL (74-106); Potassium 4.6 mmoL/L (3.5-5.1); Sodium 142 mmol/L (136-145)
== END ==
PROVIDERS: PCP Internal Medicine Adolescent Medicine; Visit Provider Internal Medicine Adolescent Medicine
DX: I50.9 Heart failure, unspecified (principal)
CPT/HCPCS: 36415; 80048

== ENCOUNTER 2017-09-30 11:00 | Outpatient (RCR) | payer MEDICAID, SELFPAY | END 2017-09-30 11:01 | disposition home or self-care (01) | LOC: PT 11:00 | PROVIDERS: Family Provider Internal Medicine Adolescent Medicine; PCP Internal Medicine Adolescent Medicine; Visit Provider Orthopaedic Surgery | DX: M25.561 Pain in right knee (principal) | CPT/HCPCS: 97010; 97033; 97035; 97110; 97164 ==

== ENCOUNTER → 2017-11-02 09:59 | Outpatient (CLI) | payer BC, SELFPAY ==
[2017-11-02 10:25] LABS: Basophils # 0.1 K/mm3 (0-0.2); Basophils % 0.7 % (0.1-2.0); Eosinophils # 0.2 K/mm3 (0.0-0.4); Eosinophils % 2.2 % (0.1-12.0); Lymphocytes # 1.2 K/mm3 (0.7-4.5); Lymphocytes % 15.9 K/mm3 (10-50); Mean Corpuscular HGB Conc 31.5 g/dL (31.8-35.4); Mean Corpuscular Hemoglobin 31.7 pg (27.0-31.2); Mean Corpuscular Volume 100.7 fl (80-94); Mean Platelet Volume 7.4 fl (7.4-10.4); Monocytes # 0.6 K/mm3 (0.1-1.0); Neutrophils # 5.5 K/mm3 (1.8-7.8); Neutrophils % 73.2 % (37.0-80.0); Platelet Count 160 K/mm3 (142-424); Red Blood Count 6.11 M/mm3 (4.60-6.20); White Blood Count 7.6 K/mm3 (4.8-10.8)
[2017-11-02 10:29] LABS: Hemoglobin 19.4 g/dL (14.1-18.0)
[2017-11-02 10:53] LABS: Alanine Aminotransferase 48 U/L (12-78); Albumin Level 3.6 gm/dL (3.4-5.0); Albumin/Globulin Ratio 1.1 (1.1-1.8); Alkaline Phosphatase 72 U/L (46-116); Anion Gap 12.6 mEq/L (5-15); Aspartate Amino Transferase 26 U/L (15-37); Bilirubin,Total 0.7 mg/dL (0.2-1.0); Blood Urea Nitrogen 19 mg/dL (7-18); Calcium 9.3 mg/dL (8.5-10.1); Carbon Dioxide 29 mmol/L (21.0-32.0); Chloride 104 mmol/L (98-107); Creatinine,Serum 1.29 mg/dL (0.70-1.30); Estimated Glomerular Filt Rate 57 ml/min (>60); GFR (African American) 69 ML/MIN (>60); Globulin 3.2 gm/dl (1.3-3.2); Glucose 115 mg/dL (74-106); Potassium 4.6 mmoL/L (3.5-5.1); Sodium 141 mmol/L (136-145); Total Protein,Serum 6.8 gm/dL (6.4-8.2)
[2017-11-02 12:34] LABS: Ferritin 138 ng/mL (8-388)
[2017-11-04 12:12] LABS: Iron 125 ug/dL (38-169); UIBC 183 ug/dL (111-343)
[2017-11-04 12:29] LABS: Peripheral Smear Review Scanned Result
[2017-11-04 13:27] LABS: Iron Saturation 41 % (15-55)
== END ==
PROVIDERS: PCP Internal Medicine Adolescent Medicine; Visit Provider Internal Medicine Adolescent Medicine
DX: I50.9 Heart failure, unspecified (principal); I25.10 Atherosclerotic heart disease of native coronary artery without angina pectoris; D58.2 Other hemoglobinopathies; R71.8 Other abnormality of red blood cells
CPT/HCPCS: 36415; 80053; 82607; 82728; 82746; 83550; 85025; 99195

== ENCOUNTER → 2017-11-04 16:14 | Outpatient (CLI) | payer BC, SELFPAY ==
[2017-11-04 17:41] LABS: Basophils # 0.1 K/mm3 (0-0.2); Basophils % 1.4 % (0.1-2.0); Eosinophils # 0.1 K/mm3 (0.0-0.4); Eosinophils % 1.6 % (0.1-12.0); Hematocrit 56.4 % (42.0-52.0); Lymphocytes # 1.3 K/mm3 (0.7-4.5); Lymphocytes % 23.7 K/mm3 (10-50); Mean Corpuscular HGB Conc 32.1 g/dL (31.8-35.4); Mean Corpuscular Hemoglobin 32.4 pg (27.0-31.2); Mean Corpuscular Volume 101.1 fl (80-94); Mean Platelet Volume 7.8 fl (7.4-10.4); Monocytes # 0.9 K/mm3 (0.1-1.0); Monocytes % 15.4 % (1.7-9.3); Neutrophils # 3.2 K/mm3 (1.8-7.8); Neutrophils % 57.9 % (37.0-80.0); Platelet Count 151 K/mm3 (142-424); Red Blood Count 5.57 M/mm3 (4.60-6.20); Red Cell Distribution Width 13.2 % (11.5-17.5); White Blood Count 5.6 K/mm3 (4.8-10.8)
[2017-11-04 19:40] LABS: Anion Gap 12.7 mEq/L (5-15); Blood Urea Nitrogen 23 mg/dL (7-18); Calcium 9.5 mg/dL (8.5-10.1); Carbon Dioxide 27 mmol/L (21.0-32.0); Chloride 101 mmol/L (98-107); Creatinine,Serum 1.72 mg/dL (0.70-1.30); Estimated Glomerular Filt Rate 41 ml/min (>60); GFR (African American) 49 ML/MIN (>60); Glucose 79 mg/dL (74-106); Potassium 4.7 mmoL/L (3.5-5.1); Sodium 136 mmol/L (136-145)
[2017-11-07 06:26] LABS: Folate >20.0 ng/mL (>3.0); Vitamin B12 1792 pg/mL (232-1245)
== END ==
PROVIDERS: PCP Internal Medicine Adolescent Medicine; Visit Provider Internal Medicine Adolescent Medicine
DX: D58.2 Other hemoglobinopathies (principal); R71.8 Other abnormality of red blood cells
CPT/HCPCS: 36415; 80048; 82607; 82746; 85025

== ENCOUNTER 2017-11-05 14:38 | Observation (INO) ==
--- NOTE | 2017-11-05 14:47 | Emergency Department Note ---
ED Disposition Clinical Impression: Dehydration Hypotension Qualifiers: Hypotension type: unspecified hypotension type Qualified Code(s): I95.9 - Hypotension, unspecified Syncope Qualifiers: Syncope type: unspecified Qualified Code(s): R55 - Syncope and collapse Disposition: Still a Patient Condition on Discharge: Fair Referrals: Umair Ma MD [Primary Care Provider] - - Critical Care Critical Care Time: Yes Attestation: On , the high probability of a clinically significant, sudden or life threatening deterioration of the following system(s) required my full and direct attention, intervention and personal management. The time I documented below is in addition to time spent performing reported procedures but includes the following listed in this critical care notation. Total Critical Care Time: 32 Vital system(s) involved:: Circulatory Failure My critical care processes included: Assessment & monitoring of V/S, Initial and Re-exams, Data Review/Interpretation, Coordinating Care, Medication Orders and management, Documentation Medical Decision Making - Hill Inquiry Pt receiving controlled substance: No Vital Signs: 11/05/17 14:38 11/05/17 15:38 Temperature 97.8 F Temperature Source Oral Pulse Rate [Right Radial] 92 H 73 Respiratory Rate 18 20 Blood Pressure [Right Arm] 78/46 79/35 Blood Pressure Mean [Right Arm] 56 49 Blood Pressure Source [Right Arm] Automatic Cuff Automatic Cuff Blood Pressure Position [Right Arm] Sitting Sitting 02 Sat by Pulse Oximetry 92 L 92 L Oxygen Delivery Method Room Air Room Air - Lab Data Lab Results 11/05/17 14:50: WBC 6.1, RBC 5.34, Hgb 17.2, Hct 53.3 H, MCV 99.9 H, MCH 32.1 H , MCHC 32.2, RDW 13.1, Plt Count 189 D, MPV 7.7, Neut % (Auto) 74.7, Lymph % ( Auto) 15.5, [place] % (Auto) 7.6, Eos % (Auto) 1.4, Baso % (Auto) 0.8, Neut # (Auto ) 4.5, Lymph # (Auto) 0.9, [place] # (Auto) 0.5, Eos # (Auto) 0.1, Baso # (Auto) 0.1 11/05/17 14:50: Sodium 139, Potassium 4.1, Chloride 102, Carbon Dioxide 29, Anion Gap 12.1, BUN 25 H, Creatinine 2.02 H, Estimated Creat Clear 68, Estimated GFR 34 L, Est GFR ( Amer) 41 L, Glucose 99 D, Calcium 8.9, Troponin I < 0.02 Result diagrams: 11/05/17 14:50 11/05/17 14:50 Orders (Tests/Meds): ED MEDICATIONS Generic Name Dose Route Start Last Admin Trade Name Freq PRN Reason Stop Dose Admin Sodium Chloride 1,000 mls @ 999 mls/hr 11/05/17 15:15 11/05/17 15:19 Sod Chlor 0.9% 1000ml Bag IV 11/05/17 16:15 999 mls/hr .Q1H1M SEBAS Administration Discontinued Medications Generic Name Dose Route Start Last Admin Trade Name Freq PRN Reason Stop Dose Admin Sodium Chloride 1,000 ml 11/05/17 16:00 Sod Chlor 0.9% 1000ml Bag IV 11/05/17 16:01 BOLUS ONE ORDERS Category Date Time Status CT head/brain wo con Stat Cat Scan 11/05/17 14:53 Stop Req - ECG Data Tracing #1 EKG interpreted by Gutierrez Robertson MD: Rhythm: sinus Rate: 80 [place]: normal Ectopy: none Conduction: normal ST Segment Changes: none T Wave Changes: none Q Waves: V1 and V2 No evidence of acute ischemia or injury Prior electrocardiagrams reviewed. No change from prior tracings. - Physician Consults Physician Consulted: Francesca Time: 16:01 Reason -: Admission Comment/Response: Agrees to admit the patient to the hospital. We discussed the patient's clinical information, including history, exam, laboratory and radiology results and ED course. Per hospital procedure, I will write temporary bridge inpatient orders on the patient. Specific orders requested by the admitting physician: Bolus a second liter of normal saline for a total of 2 L bolus. Then decrease fluids to 125 cc/h. Recheck labs in the morning. General Adult HPI - General Stated complaint: passed out in parking lot-[facility] Time Seen by Provider: 11/05/17 14:45 - History of Present Illness HPI narrative: Syncopal episode in the parking lot here. States he got out of the car to go to cardiac rehab and passed out. No injury. Has a history of syncopal episodes and hypotension. States that this dates back before 2016. States he has been hospitalized multiple times due to syncope, dehydration, hypotension. Unknown cause. Most recently, saw Dr. Ma on Saturday 4 days ago for routine follow-up. Had blood drawn on Saturday. Was called and told that he had a high hemoglobin and to donate a pint of blood, which he did. Over the weekend he has had 2 episodes of syncope and some vomiting. Saw Dr. Ma in the office again yesterday and said his blood pressure was good for him at that time. More blood drawn for follow-up, results not yet known. - Related Data Home Medications Medication Instructions Recorded Confirmed Atorvastatin Calcium [Atorvastatin 80 mg PO HS 06/03/17 11/05/17 80mg Tab] Carvedilol [Carvedilol 25mg Tab] 25 mg PO BID 06/03/17 11/05/17 Clopidogrel Bisulfate [Plavix 75mg 75 mg PO DAILY 06/03/17 11/05/17 Tab] Nitroglycerin 0.4 mg PO Q5MINP PRN 06/03/17 11/05/17 Tamsulosin HCl [Flomax 0.4mg 0.4 mg PO DAILY 06/03/17 11/05/17 capsule] Aspirin [Adult Low Dose Aspirin EC] 81 mg PO DAILY 06/24/17 11/05/17 Suvorexant [Belsomra] 20 mg PO DAILY 06/24/17 11/05/17 brexpiprazole 0.5 mg tablet 0.5 mg PO ONCE 08/21/17 11/05/17 vortioxetine 20 mg tablet 20 mg PO ONCE 08/21/17 11/05/17 diclofenac 1 % topical gel 1 % TOPICAL TIDP PRN 12 Days #100 09/03/17 11/05/17 Cholecalciferol (Vitamin D3) 2,000 unit PO DAILY 11/05/17 11/05/17 [Vitamin D3] Cyanocobalamin (Vitamin B-12) 2,500 mcg PO DAILY 11/05/17 11/05/17 [Vitamin B12 2.5mg Tab] Fish Oil/Borage/Flax/Om3,6,9#1 400 mg PO DAILY 11/05/17 11/05/17 [[place] 3-6-9 Complex Softgel] Folic Acid/Vit B Complex and C 800 mcg PO DAILY 11/05/17 11/05/17 [Super B-Complex Folic-Vit C Tb] Ginkgo Biloba [place] Extract [Ginkgo] 60 mg PO DAILY 11/05/17 11/05/17 Glucosamine/MSM/Chondroitin A 1 each PO DAILY 11/05/17 11/05/17 [Glucosamine Chondroit MSM Tab] Isosorbide Mononitrate [Imdur 60mg 60 mg PO DAILY 11/05/17 11/05/17 ER tablet] Previous Rx's Medication Instructions Recorded ranolazine ER 1,000 mg 1,000 mg PO BID #180 tab 08/08/17 tablet,extended release,12 hr Allergies Allergy/AdvReac Type Severity Reaction Status Date / Time hydralazine Allergy Severe S-DIFF. Verified 11/05/17 14:54 BREATHING olmesartan Allergy Severe S-DIFF. Verified 11/05/17 14:54 BREATHING penicillin V Allergy Unknown Verified 11/05/17 14:54 Penicillins Allergy Unknown FAMILY Verified 11/05/17 14:54 HISTORY OF PCN ALLERGY [facility] History I have reviewed the patient's past medical history: Yes Medical History: Reports:: Atherosclerotic Heart Disease, Chronic Obstructive Pulmonary Disease (COPD), Coronary Artery Disease, Diabetes Mellitus Type 2, Hyperlipidemia, Hypertension, Internal Pacemaker Denies:: Cancer, Diabetes Mellitus Type 1, MRSA Laterality Cases: Bilateral: Arthroscopy Knee Other Surgeries: Yes: CABG, Cardiac Catheterization, Pacemaker Amputation: No Fractures: No - Social History Smoking Status: Current some day smoker #Yrs smoked (if former smoker): 30 Alcohol Intake: never Alcohol Intake Frequency:: other Occupational Status: retired, disabled Housing: house Household Members: spouse Family Hx:: Cancer ROS Obtained: Yes All systems reviewed & no additional complaints - Constitutional Constitutional: Denies fever(s) - Cardiovascular Cardiovascular: Denies chest pain, Reports fainting - Respiratory Respiratory: Yes cough (and chest congestion), Yes dyspnea (Chronic) - Gastrointestinal Gastrointestingal: Reports: vomiting. Denies: abdominal pain - Neurologic Neurologic: Reports numbness (Arms, chronic) Physical Exam - General General appearance: alert, in no apparent distress - Head Head exam: atraumatic, normocephalic, normal inspection - Eye Eye exam: Present: normal appearance, PERRL, EOMI - ENT ENT exam: Present: normal exam, normal oropharynx, mucous membranes moist, TM's normal bilaterally, normal external ear exam - Neck Neck exam: Present: normal inspection, full ROM, trachea midline. Absent: meningismus, lymphadenopathy - Chest Chest inspection: Present: normal inspection, symmetric chest wall rise. Absent : tenderness - Respiratory Respiratory exam: Present: normal lung sounds bilaterally. Absent: respiratory distress - Cardiovascular Cardiovascular exam: Present: regular rate, normal rhythm. Absent: JVD - Abdominal Exam Abdominal exam: Present: soft, normal bowel sounds. Absent: distention, tenderness, guarding - Extremities Exam Extremities exam: Present: normal inspection, full ROM, normal capillary refill. Absent: calf tenderness - Back Exam Back exam: Present: normal inspection. Absent: tenderness - Neurological Exam Neurological exam: Present: alert, oriented X3, CN II-XII intact. Absent: motor sensory deficit - Psychiatric Psychiatric exam: Present: normal affect, normal mood - Skin Skin exam: Present: warm, dry, intact, normal color
[2017-11-05 15:05] LABS: Basophils # 0.1 K/mm3 (0-0.2); Basophils % 0.8 % (0.1-2.0); Eosinophils # 0.1 K/mm3 (0.0-0.4); Eosinophils % 1.4 % (0.1-12.0); Hematocrit 53.3 % (42.0-52.0); Hemoglobin 17.2 g/dL (14.1-18.0); Lymphocytes # 0.9 K/mm3 (0.7-4.5); Lymphocytes % 15.5 K/mm3 (10-50); Mean Corpuscular HGB Conc 32.2 g/dL (31.8-35.4); Mean Corpuscular Hemoglobin 32.1 pg (27.0-31.2); Mean Corpuscular Volume 99.9 fl (80-94); Mean Platelet Volume 7.7 fl (7.4-10.4); Monocytes # 0.5 K/mm3 (0.1-1.0); Monocytes % 7.6 % (1.7-9.3); Neutrophils # 4.5 K/mm3 (1.8-7.8); Neutrophils % 74.7 % (37.0-80.0); Platelet Count 189 K/mm3 (142-424); Red Blood Count 5.34 M/mm3 (4.60-6.20); Red Cell Distribution Width 13.1 % (11.5-17.5); White Blood Count 6.1 K/mm3 (4.8-10.8)
[2017-11-05 15:22] LABS: Anion Gap 12.1 mEq/L (5-15); Blood Urea Nitrogen 25 mg/dL (7-18); Calcium 8.9 mg/dL (8.5-10.1); Carbon Dioxide 29 mmol/L (21.0-32.0); Chloride 102 mmol/L (98-107); Glucose 99 mg/dL (74-106); Potassium 4.1 mmoL/L (3.5-5.1); Sodium 139 mmol/L (136-145)
[2017-11-06 06:04] LABS: Basophils % 0.6 % (0.1-2.0); Eosinophils # 0.1 K/mm3 (0.0-0.4); Eosinophils % 2.1 % (0.1-12.0); Hematocrit 51.2 % (42.0-52.0); Hemoglobin 16.2 g/dL (14.1-18.0); Lymphocytes # 1.5 K/mm3 (0.7-4.5); Lymphocytes % 27.9 K/mm3 (10-50); Mean Corpuscular HGB Conc 31.6 g/dL (31.8-35.4); Mean Corpuscular Hemoglobin 32.1 pg (27.0-31.2); Mean Corpuscular Volume 101.7 fl (80-94); Mean Platelet Volume 7.9 fl (7.4-10.4); Monocytes # 0.5 K/mm3 (0.1-1.0); Monocytes % 10.2 % (1.7-9.3); Neutrophils # 3.1 K/mm3 (1.8-7.8); Neutrophils % 59.2 % (37.0-80.0); Platelet Count 148 K/mm3 (142-424); Red Blood Count 5.04 M/mm3 (4.60-6.20); Red Cell Distribution Width 13.2 % (11.5-17.5); White Blood Count 5.3 K/mm3 (4.8-10.8)
[2017-11-06 06:24] LABS: Anion Gap 10.6 mEq/L (5-15); Calcium 8.3 mg/dL (8.5-10.1); Potassium 4.6 mmoL/L (3.5-5.1)
--- NOTE | 2017-11-06 07:43 | Pharmacy Consult Notes ---
[facility] Pharmacy VTE Monitoring - Patient Demographics Admission date: 11/05/17 Report Date: 11/06/17 Time: 07:43 Allergies/Adverse Reactions: Patient Allergies hydralazine Allergy (Severe, Verified 11/05/17 14:54) S-DIFF. BREATHING olmesartan Allergy (Severe, Verified 11/05/17 14:54) S-DIFF. BREATHING penicillin V Allergy (Unknown, Verified 11/05/17 14:54) Penicillins Allergy (Unknown, Verified 11/05/17 14:54) FAMILY HISTORY OF PCN ALLERGY Height: 1.75 m Weight: 122.668 kg Patient Problems: Current Active Problems Hypotension (Acute) Dehydration (Acute) Syncope (Acute) - VTE Risk Labs: VTE Related Lab Results Hgb 16.2 g/dL (14.1-18.0) 11/06/17 05:15 Hct 51.2 % (42.0-52.0) 11/06/17 05:15 Plt Count 148 K/mm3 (142-424) 11/06/17 05:15 BUN 24 mg/dL (7-18) H 11/06/17 05:15 Creatinine 1.39 mg/dL (0.70-1.30) H D 11/06/17 05:15 Estimated Creat Clear 99 mL/min (0-300) 11/06/17 05:15 VTE Score: 5 VTE Risk Level: Low Risk - Prophylaxis VTE Prophylaxis Ordered?: Yes Types of VTE Prophylaxis: TEDS Knee High Location of Applied Device: Bilateral Lower Extremeties - VTE Diagnosis Confirmed Treatment or plan recommended: Continue Current Treatment
--- NOTE | 2017-11-06 07:46 | H&P/Discharge Summary ---
General - General Admission date:: 11/05/17 Discharge date: 11/06/17 *Admission Date: 11/05/17 *Chief complaint: Dehydration *History of present illness: 57-year-old white male with history of acute kidney injury in the past with history of dehydration and admission for fluid administration who a couple of days ago was diagnosed with secondary polycythemia and underwent therapeutic phlebotomy. He did not feel good after this and I saw him the next day, he had improving hemoglobin and hematocrit levels but had slightly worsened creatinine and we encouraged fluids and had appointment rescheduled. However the next day he had a syncopal episode, came to the ER, creatinine was above 2 and he was admitted for fluids and his Entresto was held. Of note he has not been on diuretics over the past 6 months because of this propensity for dehydration. [facility] History I have reviewed the patient's past medical history: Yes Medical History: Reports:: Atherosclerotic Heart Disease, Chronic Obstructive Pulmonary Disease (COPD), Coronary Artery Disease, Diabetes Mellitus Type 2, Hyperlipidemia, Hypertension, Internal Pacemaker Denies:: Cancer, Diabetes Mellitus Type 1, MRSA Laterality Cases: Bilateral: Arthroscopy Knee Other Surgeries: Yes: CABG, Cardiac Catheterization, Pacemaker Amputation: No Fractures: No - *Social History Educational Level: Completed High School Smoking Status: Light tobacco smoker Tobacco Type: cigarettes #Yrs smoked (if former smoker): 30 Alcohol Intake: current Alcohol Intake Frequency:: a few times a week Occupational Status: retired, disabled Housing: house Household Members: spouse - Psychiatric History Expresses thoughts of harming self/others: None Suicide Plan Description: No Plan *Family Hx:: Cancer Review of Systems - Review of Systems Review of systems:: pertinent systems reviewed and negative unless documented below - *Neurologic Reports numbness (Arms, chronic), Reports fainting Exam Vital signs and Labs for Last 24 Hours: Temp Pulse Resp BP Pulse Ox 97.4 F L 58 L 18 123/85 93 L 11/06/17 04:00 11/06/17 04:00 11/06/17 04:00 11/06/17 04:00 11/06/17 04:00 Laboratory Results - last 24 hr 11/05/17 14:50: WBC 6.1, RBC 5.34, Hgb 17.2, Hct 53.3 H, MCV 99.9 H, MCH 32.1 H , MCHC 32.2, RDW 13.1, Plt Count 189 D, MPV 7.7, Neut % (Auto) 74.7, Lymph % ( Auto) 15.5, [place] % (Auto) 7.6, Eos % (Auto) 1.4, Baso % (Auto) 0.8, Neut # (Auto ) 4.5, Lymph # (Auto) 0.9, [place] # (Auto) 0.5, Eos # (Auto) 0.1, Baso # (Auto) 0.1 11/05/17 14:50: Sodium 139, Potassium 4.1, Chloride 102, Carbon Dioxide 29, Anion Gap 12.1, BUN 25 H, Creatinine 2.02 H, Estimated Creat Clear 68, Estimated GFR 34 L, Est GFR ( Amer) 41 L, Glucose 99 D, Calcium 8.9, Troponin I < 0.02 11/06/17 05:15: WBC 5.3, RBC 5.04, Hgb 16.2, Hct 51.2, MCV 101.7 H, MCH 32.1 H, MCHC 31.6 L, RDW 13.2, Plt Count 148, MPV 7.9, Neut % (Auto) 59.2, Lymph % (Auto ) 27.9, [place] % (Auto) 10.2 H, Eos % (Auto) 2.1, Baso % (Auto) 0.6, Neut # (Auto ) 3.1, Lymph # (Auto) 1.5, [place] # (Auto) 0.5, Eos # (Auto) 0.1, Baso # (Auto) 0.0 11/06/17 05:15: Sodium 140, Potassium 4.6, Chloride 108 H, Carbon Dioxide 26, Anion Gap 10.6, BUN 24 H, Creatinine 1.39 H D, Estimated Creat Clear 99, Estimated GFR 52 L, Est GFR ( Amer) 63 D, Glucose 106, Calcium 8.3 L I & O for Last 24 hours: Intake & Output 11/03/17 11/04/17 11/05/17 11/06/17 11:59 11:59 11:59 11:59 Intake Total 1365 / 1365 Balance 1365 / 1365 Weight 270 lb 7 oz Narrative: This morning patient is alert, pleasant, denies pain or discomfort. Oropharynx is clear, heart rate regular. Lungs are clear, no peripheral edema. Hospital Course Hospital Course: Patient was admitted, he had been given 2 L of fluid in the ER. Given low-dose fluids overnight and his creatinine this morning is normalized. He feels good, potassium is normal. He will be discharged home with a reduced dose of Entresto to reduce chances of dehydration. Results Labs on day of discharge: Labs from last 24 hours 11/06/17 11/06/17 11/05/17 05:15 05:15 14:50 WBC 5.3 RBC 5.04 Hgb 16.2 Hct 51.2 MCV 101.7 H MCH 32.1 H MCHC 31.6 L RDW 13.2 Plt Count 148 MPV 7.9 Neut % (Auto) 59.2 Lymph % (Auto) 27.9 [place] % (Auto) 10.2 H Eos % (Auto) 2.1 Baso % (Auto) 0.6 Neut # (Auto) 3.1 Lymph # (Auto) 1.5 [place] # (Auto) 0.5 Eos # (Auto) 0.1 Baso # (Auto) 0.0 Sodium 140 139 Potassium 4.6 4.1 Chloride 108 H 102 Carbon Dioxide 26 29 Anion Gap 10.6 12.1 BUN 24 H 25 H Creatinine 1.39 H D 2.02 H Estimated Creat Clear 99 68 Estimated GFR 52 L 34 L Est GFR ( Amer) 63 D 41 L Glucose 106 99 D Calcium 8.3 L 8.9 Troponin I < 0.02 11/05/17 14:50 WBC 6.1 RBC 5.34 Hgb 17.2 Hct 53.3 H MCV 99.9 H MCH 32.1 H MCHC 32.2 RDW 13.1 Plt Count 189 D MPV 7.7 Neut % (Auto) 74.7 Lymph % (Auto) 15.5 [place] % (Auto) 7.6 Eos % (Auto) 1.4 Baso % (Auto) 0.8 Neut # (Auto) 4.5 Lymph # (Auto) 0.9 [place] # (Auto) 0.5 Eos # (Auto) 0.1 Baso # (Auto) 0.1 Sodium Potassium Chloride Carbon Dioxide Anion Gap BUN Creatinine Estimated Creat Clear Estimated GFR Est GFR ( Amer) Glucose Calcium Troponin I DS: Diagnosis - Discharge Diagnosis (1) Dehydration Status: Acute (2) Acute kidney injury Status: Resolved (3) Orthostatic hypotension Status: Resolved Discharge Medications Discharge Medications: Home Medications Medication Instructions Recorded Confirmed Type Atorvastatin Calcium [Atorvastatin 80 mg PO HS 06/03/17 11/05/17 History 80mg Tab] Carvedilol [Carvedilol 25mg Tab] 25 mg PO BID 06/03/17 11/05/17 History Clopidogrel Bisulfate [Plavix 75mg 75 mg PO DAILY 06/03/17 11/05/17 History Tab] Nitroglycerin 0.4 mg PO Q5MINP PRN 06/03/17 11/05/17 History Tamsulosin HCl [Flomax 0.4mg 0.4 mg PO DAILY 06/03/17 11/05/17 History capsule] Aspirin [Adult Low Dose Aspirin EC] 81 mg PO DAILY 06/24/17 11/05/17 History Suvorexant [Belsomra] 20 mg PO DAILY 06/24/17 11/05/17 History brexpiprazole 0.5 mg tablet 0.5 mg PO ONCE 08/21/17 11/05/17 History vortioxetine 20 mg tablet 20 mg PO ONCE 08/21/17 11/05/17 History diclofenac 1 % topical gel 1 % TOPICAL TIDP PRN 12 Days #100 09/03/17 11/05/17 History Cholecalciferol (Vitamin D3) 2,000 unit PO DAILY 11/05/17 11/05/17 History [Vitamin D3] Cyanocobalamin (Vitamin B-12) 2,500 mcg PO DAILY 11/05/17 11/05/17 History [Vitamin B12 2.5mg Tab] Fish Oil/Borage/Flax/Om3,6,9#1 400 mg PO DAILY 11/05/17 11/05/17 History [[place] 3-6-9 Complex Softgel] Folic Acid/Vit B Complex and C 800 mcg PO DAILY 11/05/17 11/05/17 History [Super B-Complex Folic-Vit C Tb] Ginkgo Biloba [place] Extract [Ginkgo] 60 mg PO DAILY 11/05/17 11/05/17 History Glucosamine/MSM/Chondroitin A 1 each PO DAILY 11/05/17 11/05/17 History [Glucosamine Chondroit MSM Tab] Isosorbide Mononitrate [Imdur 60mg 60 mg PO DAILY 11/05/17 11/05/17 History ER tablet] Disposition Disposition: Home, Self-Care
== END 2017-11-06 09:55 | disposition home or self-care (01) ==
LOC: 2ND 14:38 → ER 14:38 → 2ND 16:56
PROVIDERS: ADMIT Internal Medicine Adolescent Medicine; ATTEND Internal Medicine Adolescent Medicine
CPT/HCPCS: 36415; 71010; 71045; 80048; 84484; 85025; 93005; 96365; 96366; 99284; G0378

== ENCOUNTER → 2017-11-08 09:07 | Outpatient (CLI) | payer BC, SELFPAY ==
[2017-11-08 10:16] LABS: Anion Gap 14.1 mEq/L (5-15); Blood Urea Nitrogen 20 mg/dL (7-18); Calcium 9.1 mg/dL (8.5-10.1); Carbon Dioxide 26 mmol/L (21.0-32.0); Chloride 105 mmol/L (98-107); Creatinine,Serum 1.32 mg/dL (0.70-1.30); Estimated Glomerular Filt Rate 56 ml/min (>60); GFR (African American) 67 ML/MIN (>60); Glucose 95 mg/dL (74-106); Potassium 4.1 mmoL/L (3.5-5.1); Sodium 141 mmol/L (136-145)
== END ==
PROVIDERS: Visit Provider Internal Medicine Adolescent Medicine
DX: E86.0 Dehydration (principal)
CPT/HCPCS: 36415; 80048

== ENCOUNTER → 2017-11-11 11:37 | Outpatient (CLI) | payer BC, SELFPAY ==
[2017-11-12 14:53] LABS: Erythropoietin 16.1 mIU/mL (2.6-18.5)
== END ==
PROVIDERS: Visit Provider Internal Medicine Adolescent Medicine
DX: D75.89 Other specified diseases of blood and blood-forming organs (principal); D75.1 Secondary polycythemia
CPT/HCPCS: 36415; 82668

== ENCOUNTER → 2017-11-22 09:23 | Outpatient (CLI) | payer BC, SELFPAY ==
[2017-11-22 10:50] LABS: Anion Gap 12.6 mEq/L (5-15); Blood Urea Nitrogen 17 mg/dL (7-18); Calcium 8.4 mg/dL (8.5-10.1); Carbon Dioxide 26 mmol/L (21.0-32.0); Chloride 104 mmol/L (98-107); Creatinine,Serum 1.34 mg/dL (0.70-1.30); Estimated Glomerular Filt Rate 55 ml/min (>60); GFR (African American) 66 ML/MIN (>60); Glucose 104 mg/dL (74-106); Potassium 4.6 mmoL/L (3.5-5.1); Sodium 138 mmol/L (136-145)
[2017-11-22 11:31] LABS: Basophils # 0.1 K/mm3 (0-0.2); Basophils % 0.9 % (0.1-2.0); Eosinophils # 0.2 K/mm3 (0.0-0.4); Eosinophils % 2.4 % (0.1-12.0); Hematocrit 52.1 % (42.0-52.0); Hemoglobin 16.5 g/dL (14.1-18.0); Lymphocytes # 1.5 K/mm3 (0.7-4.5); Lymphocytes % 19.7 K/mm3 (10-50); Mean Corpuscular HGB Conc 31.7 g/dL (31.8-35.4); Mean Corpuscular Volume 101.1 fl (80-94); Mean Platelet Volume 7.7 fl (7.4-10.4); Monocytes # 0.6 K/mm3 (0.1-1.0); Monocytes % 8.3 % (1.7-9.3); Neutrophils # 5.2 K/mm3 (1.8-7.8); Neutrophils % 68.8 % (37.0-80.0); Platelet Count 200 K/mm3 (142-424); Red Blood Count 5.16 M/mm3 (4.60-6.20); Red Cell Distribution Width 13.9 % (11.5-17.5); White Blood Count 7.5 K/mm3 (4.8-10.8)
== END ==
PROVIDERS: Visit Provider Internal Medicine Adolescent Medicine
DX: I50.9 Heart failure, unspecified (principal)
CPT/HCPCS: 36415; 80048; 85025

== ENCOUNTER → 2017-12-13 10:52 | Outpatient (CLI) | payer BC, SELFPAY ==
[2017-12-13 11:11] LABS: Basophils # 0.1 K/mm3 (0-0.2); Eosinophils # 0.1 K/mm3 (0.0-0.4); Eosinophils % 2.1 % (0.1-12.0); Hematocrit 50.6 % (42.0-52.0); Hemoglobin 15.8 g/dL (14.1-18.0); Lymphocytes # 1.3 K/mm3 (0.7-4.5); Mean Corpuscular HGB Conc 31.2 g/dL (31.8-35.4); Mean Corpuscular Hemoglobin 31.8 pg (27.0-31.2); Mean Platelet Volume 7.7 fl (7.4-10.4); Monocytes # 0.5 K/mm3 (0.1-1.0); Monocytes % 7.5 % (1.7-9.3); Neutrophils # 4.6 K/mm3 (1.8-7.8); Neutrophils % 70.3 % (37.0-80.0); Platelet Count 180 K/mm3 (142-424); Red Blood Count 4.96 M/mm3 (4.60-6.20); Red Cell Distribution Width 14.6 % (11.5-17.5); White Blood Count 6.6 K/mm3 (4.8-10.8)
[2017-12-13 12:39] LABS: Alanine Aminotransferase 39 U/L (12-78); Albumin Level 3.5 gm/dL (3.4-5.0); Albumin/Globulin Ratio 1.1 (1.1-1.8); Alkaline Phosphatase 77 U/L (46-116); Anion Gap 13.2 mEq/L (5-15); Aspartate Amino Transferase 23 U/L (15-37); Bilirubin,Total 0.5 mg/dL (0.2-1.0); Blood Urea Nitrogen 17 mg/dL (7-18); Calcium 9.2 mg/dL (8.5-10.1); Carbon Dioxide 25 mmol/L (21.0-32.0); Chloride 108 mmol/L (98-107); Estimated Glomerular Filt Rate 62 ml/min (>60); GFR (African American) 75 ML/MIN (>60); Globulin 3.1 gm/dl (1.3-3.2); Glucose 97 mg/dL (74-106); Potassium 4.2 mmoL/L (3.5-5.1); Sodium 142 mmol/L (136-145); Total Protein,Serum 6.6 gm/dL (6.4-8.2)
== END ==
PROVIDERS: Visit Provider Internal Medicine Adolescent Medicine
DX: I50.9 Heart failure, unspecified (principal); I10 Essential (primary) hypertension
CPT/HCPCS: 36415; 80053; 85025

== ENCOUNTER → 2018-01-17 10:59 | Outpatient (CLI) | payer BC, SELFPAY ==
[2018-01-17 11:37] LABS: Basophils % 0.7 % (0.1-2.0); Eosinophils # 0.1 K/mm3 (0.0-0.4); Eosinophils % 1.8 % (0.1-12.0); Lymphocytes # 1.2 K/mm3 (0.7-4.5); Lymphocytes % 19.1 K/mm3 (10-50); Mean Corpuscular HGB Conc 33.2 g/dL (31.8-35.4); Mean Corpuscular Hemoglobin 34.1 pg (27.0-31.2); Mean Corpuscular Volume 102.5 fl (80-94); Mean Platelet Volume 7.4 fl (7.4-10.4); Monocytes # 0.5 K/mm3 (0.1-1.0); Monocytes % 7.6 % (1.7-9.3); Neutrophils # 4.3 K/mm3 (1.8-7.8); Neutrophils % 70.8 % (37.0-80.0); Platelet Count 173 K/mm3 (142-424); Red Blood Count 5.27 M/mm3 (4.60-6.20); Red Cell Distribution Width 13.7 % (11.5-17.5); White Blood Count 6.1 K/mm3 (4.8-10.8)
[2018-01-17 12:49] LABS: Alanine Aminotransferase 40 U/L (12-78); Albumin Level 3.5 gm/dL (3.4-5.0); Albumin/Globulin Ratio 1.1 (1.1-1.8); Alkaline Phosphatase 69 U/L (46-116); Anion Gap 12.5 mEq/L (5-15); Aspartate Amino Transferase 19 U/L (15-37); Bilirubin,Total 0.9 mg/dL (0.2-1.0); Blood Urea Nitrogen 15 mg/dL (7-18); Calcium 9.1 mg/dL (8.5-10.1); Carbon Dioxide 28 mmol/L (21.0-32.0); Chloride 105 mmol/L (98-107); Creatinine,Serum 1.32 mg/dL (0.70-1.30); Estimated Glomerular Filt Rate 56 ml/min (>60); GFR (African American) 67 ML/MIN (>60); Globulin 3.2 gm/dl (1.3-3.2); Glucose 93 mg/dL (74-106); Potassium 4.5 mmoL/L (3.5-5.1); Sodium 141 mmol/L (136-145); Total Protein,Serum 6.7 gm/dL (6.4-8.2)
== END ==
PROVIDERS: Visit Provider Internal Medicine Adolescent Medicine
DX: I50.9 Heart failure, unspecified (principal)
CPT/HCPCS: 36415; 80053; 85025

== ENCOUNTER → 2018-03-19 10:43 | Outpatient (CLI) | payer BC, SELFPAY ==
[2018-03-19 11:09] LABS: Basophils % 0.7 % (0.1-2.0); Eosinophils # 0.1 K/mm3 (0.0-0.4); Eosinophils % 1.6 % (0.1-12.0); Hematocrit 53.6 % (42.0-52.0); Hemoglobin 17.8 g/dL (14.1-18.0); Lymphocytes # 1.1 K/mm3 (0.7-4.5); Mean Corpuscular HGB Conc 33.2 g/dL (31.8-35.4); Mean Corpuscular Hemoglobin 33.7 pg (27.0-31.2); Mean Corpuscular Volume 101.4 fl (80-94); Mean Platelet Volume 7.3 fl (7.4-10.4); Monocytes # 0.6 K/mm3 (0.1-1.0); Monocytes % 9.4 % (1.7-9.3); Neutrophils # 4.1 K/mm3 (1.8-7.8); Neutrophils % 69.3 % (37.0-80.0); Platelet Count 205 K/mm3 (142-424); Red Blood Count 5.28 M/mm3 (4.60-6.20); Red Cell Distribution Width 13.2 % (11.5-17.5); White Blood Count 5.9 K/mm3 (4.8-10.8)
[2018-03-19 13:03] LABS: Alanine Aminotransferase 44 U/L (12-78); Albumin Level 3.4 gm/dL (3.4-5.0); Albumin/Globulin Ratio 1.1 (1.1-1.8); Alkaline Phosphatase 67 U/L (46-116); Anion Gap 11.7 mEq/L (5-15); Aspartate Amino Transferase 25 U/L (15-37); Bilirubin,Total 0.6 mg/dL (0.2-1.0); Blood Urea Nitrogen 15 mg/dL (7-18); Calcium 9.1 mg/dL (8.5-10.1); Carbon Dioxide 27 mmol/L (21.0-32.0); Chloride 104 mmol/L (98-107); Chol/HDL Ratio 7.8 (1-3.5); Cholesterol 258 mg/dL (140-200); Estimated Glomerular Filt Rate 62 ml/min (>60); GFR (African American) 75 ML/MIN (>60); Globulin 3.2 gm/dl (1.3-3.2); Glucose 99 mg/dL (74-106); HDL Cholesterol 33 mg/dL (27-67); LDL Cholesterol 191 mg/dL (0-130); Potassium 4.7 mmoL/L (3.5-5.1); Sodium 138 mmol/L (136-145); Total Protein,Serum 6.6 gm/dL (6.4-8.2); Triglycerides 169 mg/dL (30-200); VLDL Cholesterol 34 mg/dL (0-40)
== END ==
PROVIDERS: PCP Internal Medicine Adolescent Medicine; Visit Provider Internal Medicine Adolescent Medicine
DX: I50.9 Heart failure, unspecified (principal); D58.2 Other hemoglobinopathies
CPT/HCPCS: 36415; 80053; 80061; 85025

== ENCOUNTER → 2018-04-07 13:20 | Outpatient (CLI) | payer BC, SELFPAY ==
[2018-04-07 13:58] LABS: Basophils # 0.1 K/mm3 (0-0.2); Eosinophils # 0.1 K/mm3 (0.0-0.4); Eosinophils % 1.7 % (0.1-12.0); Neutrophils # 4.2 K/mm3 (1.8-7.8); Red Cell Distribution Width 13.3 % (11.5-17.5)
[2018-04-07 14:06] LABS: Basophils % 1.2 % (0.1-2.0); Hematocrit 57.8 % (42.0-52.0); Lymphocytes # 1.4 K/mm3 (0.7-4.5); Lymphocytes % 22.7 K/mm3 (10-50); Mean Corpuscular HGB Conc 32.6 g/dL (31.8-35.4); Mean Corpuscular Hemoglobin 33.2 pg (27.0-31.2); Mean Corpuscular Volume 101.7 fl (80-94); Mean Platelet Volume 7.6 fl (7.4-10.4); Monocytes # 0.5 K/mm3 (0.1-1.0); Monocytes % 7.7 % (1.7-9.3); Neutrophils % 66.6 % (37.0-80.0); Platelet Count 202 K/mm3 (142-424); Red Blood Count 5.68 M/mm3 (4.60-6.20); White Blood Count 6.3 K/mm3 (4.8-10.8)
[2018-04-07 14:21] LABS: Hemoglobin 18.8 g/dL (14.1-18.0)
[2018-04-07 19:57] LABS: Alanine Aminotransferase 55 U/L (12-78); Albumin Level 3.8 gm/dL (3.4-5.0); Albumin/Globulin Ratio 1.1 (1.1-1.8); Alkaline Phosphatase 64 U/L (46-116); Anion Gap 12.6 mEq/L (5-15); Aspartate Amino Transferase 32 U/L (15-37); Bilirubin,Total 0.6 mg/dL (0.2-1.0); Blood Urea Nitrogen 14 mg/dL (7-18); Calcium 9.3 mg/dL (8.5-10.1); Carbon Dioxide 29 mmol/L (21.0-32.0); Chloride 100 mmol/L (98-107); Creatinine,Serum 1.17 mg/dL (0.70-1.30); Estimated Glomerular Filt Rate 64 ml/min (>60); GFR (African American) 77 ML/MIN (>60); Globulin 3.5 gm/dl (1.3-3.2); Glucose 70 mg/dL (74-106); Potassium 4.6 mmoL/L (3.5-5.1); Sodium 137 mmol/L (136-145); T4 (Thyroxine) 8.2 ug/dl (4.7-13.3); Thyroid Stimulating Hormone 1.28 uIU/ml (0.358-3.740); Total Protein,Serum 7.3 gm/dL (6.4-8.2); Triiodothryronine (T3) Uptake 36 % (31-39)
[2018-04-09 12:37] LABS: Vitamin B12 1155 pg/mL (232-1245)
== END ==
PROVIDERS: Visit Provider Internal Medicine Adolescent Medicine
DX: R53.83 Other fatigue (principal)
CPT/HCPCS: 36415; 80053; 82607; 84436; 84443; 84479; 85025

== ENCOUNTER → 2018-05-01 11:25 | Outpatient (CLI) | payer BC, SELFPAY | PROVIDERS: Visit Provider Internal Medicine Medical Oncology | DX: D75.1 Secondary polycythemia (principal) | CPT/HCPCS: 36415; 81270 ==

== ENCOUNTER → 2018-05-08 15:03 | Outpatient (CLI) | payer BC, SELFPAY ==
[2018-05-08 16:03] LABS: Prostate Specific Ag Screen 0.3 ng/mL (0.0-4.0)
[2018-05-10 07:18] LABS: Testosterone,Total 349 ng/dL (264-916)
== END ==
PROVIDERS: Visit Provider Internal Medicine Adolescent Medicine
DX: N41.0 Acute prostatitis (principal); R53.83 Other fatigue
CPT/HCPCS: 36415; 84403; G0103

== ENCOUNTER → 2018-05-15 13:22 | Outpatient (CLI) | payer BC, SELFPAY ==
--- NOTE | 2018-05-15 13:27 | CT_ITS ---
CT lung screening EXAM: CT LUNG LOW DOSE WO CONTRAST HISTORY: Tobacco abuse ITS.REASON: CURRENT SMOKER ORDERING PHYSICIAN: Hollie Hampton MD PATIENT AGE: 58 years COMPARISON: None TECHNIQUE: The exam was performed on a GE Light Speed [address] scanner using 2.90 mGy CTDI. A low dose helical CT CHEST was performed on a multi-detector scanner. All CT scans at the facility use one or more dose reduction, viz: automated exposure control, ma/kV adjustment per patient size (including targeted exams where dose is matched to indication, i.e. head), or iterative reconstruction technique. The LDCT was performed in a facility that meets the criteria for the screening program. Data regarding this exam was submitted to ACR which is an approved registry. The order for this exam indicates that it came as a result of a lung cancer screening counseling shard decision-making visit that included all the elements required of such a visit including smoking cessation. The radiologist interpreting this exam meets the CMS criteria for the LDCT lung cancer screening program. The exam is reported using the Lung-RADS classification scale and reported to the ACR registry. NOTE: This study was performed for the specific purposes of lung cancer screening and is not an alternative to diagnostic chest CT. RADIATION DOSE: CTDI vol(CT dose Index-volume) = 2.90mG DLP (Dose Length Product) = 112.29 mGcm FINDINGS: Centrilobular emphysema with obstructive chronic bronchitis 5 mm calcified nodule right lung base medially No suspicious pulmonary nodules are evident. Scattered small nodes present in the mediastinum. Coronary artery calcification and/or stents noted. Bilateral gynecomastia Cholelithiasis IMPRESSION: 1. Lung RADS Category: 2, benign 2. Other findings: Centrilobular emphysema with obstructive chronic bronchitis No suspicious pulmonary nodules are evident. Coronary artery calcification and/or stents noted. Bilateral gynecomastia Cholelithiasis RECOMMENDATIONS: 12 month LDCT follow-up
== END ==
PROVIDERS: PCP Internal Medicine Adolescent Medicine; Visit Provider Internal Medicine Medical Oncology
DX: Z12.2 Encounter for screening for malignant neoplasm of respiratory organs (principal); Z87.891 Personal history of nicotine dependence

== ENCOUNTER 2018-06-19 11:43 | Outpatient (CLI) | payer BC, SELFPAY ==
[2018-06-19 11:44] VITALS: BMI 38.9
[2018-06-19 12:04] LABS: Basophils # 0.1 K/mm3 (0-0.2); Basophils % 0.8 % (0.1-2.0); Eosinophils # 0.1 K/mm3 (0.0-0.4); Eosinophils % 1.8 % (0.1-12.0); Hematocrit 54.8 % (42.0-52.0); Hemoglobin 17.7 g/dL (14.1-18.0); Lymphocytes # 1.4 K/mm3 (0.7-4.5); Lymphocytes % 22.1 % (10-50); Mean Corpuscular HGB Conc 32.3 g/dL (31.8-35.4); Mean Corpuscular Hemoglobin 33.4 pg (27.0-31.2); Mean Corpuscular Volume 103.5 fl (80-94); Mean Platelet Volume 7.6 fl (7.4-10.4); Monocytes # 0.3 K/mm3 (0.1-1.0); Monocytes % 5.5 % (1.7-9.3); Neutrophils # 4.2 K/mm3 (1.8-7.8); Neutrophils % 69.8 % (37.0-80.0); Platelet Count 189 K/mm3 (142-424); Red Blood Count 5.29 M/mm3 (4.60-6.20); Red Cell Distribution Width 13.5 % (11.5-17.5); White Blood Count 6.1 K/mm3 (4.8-10.8)
== END 2018-06-19 12:15 | disposition home or self-care (01) ==
PROVIDERS: Visit Provider Internal Medicine Medical Oncology
DX: D75.1 Secondary polycythemia (principal)
CPT/HCPCS: 36415; 85025

== ENCOUNTER → 2018-06-26 20:07 | Outpatient (CLI) | payer BC, SELFPAY | PROVIDERS: PCP Internal Medicine Adolescent Medicine; Visit Provider Internal Medicine Adolescent Medicine | DX: G47.33 Obstructive sleep apnea (adult) (pediatric) (principal); G47.10 Hypersomnia, unspecified | CPT/HCPCS: 95811 ==

== ENCOUNTER → 2018-07-01 06:42 | Outpatient (CLI) | payer BC, SELFPAY ==
--- NOTE | 2018-07-01 06:49 | NM_ITS ---
History and Indications: Coronary disease, history of [place], hypertension, diabetes, chronic tobacco use, chest pain, shortness of breath and fatigue Procedure: Patient received 0.4 mg of intravenous Lexiscan, resting heart rate was 80 bpm resting blood pressure 124/75, with Lexiscan maximum heart rate achieved was 100 bpm which is less than 85% of the maximum blood pressure was 114/61. With Lexiscan patient complained of shortness of breath. Electrocardiogram: Resting echocardiogram showed sinus rhythm anteroseptal infarct age indeterminate, nonspecific ST-T changes, with Lexiscan occasional premature ventricular complex seen less than 1.[address] segment depression noted from the baseline EKG. The EKG portion of the Lexiscan Myoview is nondiagnostic. Cardiac stress and resting SPECT images: Cardiac stress and resting SPECT images were obtained using technetium 99 Myoview 32.9 mCi stress and 10.2 mCi at rest. Gated SPECT further analysis of segmental wall motion and calculation of ejection fraction also done. Cardiac stress and resting SPECT images show a large area of fixed defect involving the anterior, anteroapical, apex and anteroseptal wall consistent with extensive area of myocardial scarring, without significant braulio-infarct ischemia. Computer derived ejection fraction 37% with marked hypokinesis involving the anterior, anteroapical, apex and anteroseptal wall. Right ventricle is normal size and contractility. Conclusion: 1. The EKG portion of the Lexiscan Myoview is nondiagnostic. 2. Scintigraphic evidence of myocardial scarring involving the anterior, anteroseptal, apex and anteroseptal wall without significant braulio-infarct ischemia. Computer derived ejection fraction 37% segmental wall motion abnormality described above, right ventricle is normal size and contractility. 3. Abnormal Lexiscan Myoview study.
--- NOTE | 2018-07-01 06:49 | CA_ITS ---
PROCEDURE: 2-D M-mode and color Doppler study INDICATIONS FOR THE TEST: Chest pain X COPDX Heart Murmur Tobacco Smoking Palpitations FatigueX Syncope Edema HypertensionXDiabetes MellitusX Rheumatic Fever SOBXDOE Obesity HyperlipidemiaX Family History HD Additional History CM,AICD DEFINITY GIVEN TDS PATIENT INFORMATION HEIGHT: 69 WEIGHT:265 GENDER: Male B/P:132/92 2-D/M-MODE INTERPRETATION: 2-D MEASUREMENTS OBSERVED VALUES IN CMS Right Ventricular Dimension (RVDd) 3.0 Interventricular Septum (Thickness)(IVsd) 1.1 Left Ventricular Internal Dimensions(LVIDd) 5.6 Left Ventricular Posterior Wall (Thickness)(LVPWd) 1.0 Aortic Root 3.6 Aortic Cusp Separation 1.7 Left Atrial Dimensions (LAD) 3.4 2D 1. Left atrium is mildly enlarged, left ventricle is mildly dilated, there is mild concentric left ventricular hypertrophy, visually estimated ejection fraction approximately 35%, there is marked hypo to akinesis involving mid to distal septum, anteroapical, apical and inferoapical wall. There is left ventricular apical mural thrombus present. Definity contrast was utilized to delineate endocardial surfaces. 2. The right atrium is normal size and contractility. 3. The aortic valve is minimally thickened and fibrosed. 4. The mitral and tricuspid valve leaflets are minimally thickened. 5. The pulmonic valve is poorly visualized. 6. No significant pericardial effusion noted. DOPPLER INTERROGATION: Doppler interrogation of the aortic, mitral and tricuspid valvular presence of mild mitral and tricuspid regurgitation tricuspid regurgitation jet velocity is inadequate for calculation of the right ventricular systolic pressure, grade 1 diastolic dysfunction seen without tissue Doppler evidence of raised left atrial pressure. CONCLUSION: 1. Mildly enlarged left atrium, mildly dilated left ventricle, mild concentric left ventricular hypertrophy, severely reduced left ventricular systolic function, visually estimated ejection fraction 35% with multiple segmental wall motion abnormality described above, there is left ventricular apical mural thrombus present. Grade 1 diastolic dysfunction seen without tissue Doppler evidence of raised left atrial pressure. 2. An ICD lead seen in the right ventricle. 3. Mild mitral and tricuspid regurgitation 4. No significant pericardial effusion noted.
--- NOTE | 2018-07-01 07:16 | HMH.ITSHM ---
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 []RANEXA FUROSEMIDE ENTRESTO CLOPIDOGREL TAMSULOSIN TRINTELLIX NITRO ASA ISOSORBIDE ATORVASTATIN
== END ==
PROVIDERS: PCP Internal Medicine Adolescent Medicine; Visit Provider Internal Medicine
DX: I25.10 Atherosclerotic heart disease of native coronary artery without angina pectoris (principal); I25.5 Ischemic cardiomyopathy; R06.02 Shortness of breath; R07.89 Other chest pain
CPT/HCPCS: 78452; 93017; 93306; A9502; J2785